=== PATIENT | female | born 1990 | race American Indian/Alaskan Native ===

== ENCOUNTER 2018-09-10 19:57 | Inpatient (IN) | payer OTHER ==
[2018-09-10] MEDS ORDERED: NACL 0.9% 1000 ML 1,000 ML IV ONE (20:43)
--- NOTE | 2018-09-10 20:49 | Emergency Department Report ---
<ROSARIO FERRIS - Last Filed: 09/11/18 08:00> ED Syncope HPI - General Chief Complaint: Dizziness Stated Complaint: POST OPERATIVE BLEEDING Time Seen by Provider: 09/10/18 20:43 - Related Data Allergies/Adverse Reactions: Allergies No Known Allergies Allergy (Verified 09/10/18 20:13) Home Medications: Ambulatory Orders No Known Home Medications [No Reported Home Medications] 09/11/18 ED Past Medical Hx - Medications Home Medications: Home Medications Medication Instructions Recorded Confirmed Last Taken Type No Known Home Medications [No 09/11/18 09/11/18 Unknown History Reported Home Medications] ED Course - Consultations Consultation #3: 09/11/18 08:02 case d/w Dr Bernal, informed pt admission to icu. MAP greater than 65 at this time so central line not placed a this time. He will follow ED Medical Decision Making - Lab Data Result diagrams: 09/10/18 22:44 09/10/18 22:44 ED Disposition Clinical Impression: Dizziness, Lactic acidosis, Hyperkalemia, Elevated CK Syncope Qualifiers: Syncope type: unspecified Qualified Code(s): R55 - Syncope and collapse Anemia Qualifiers: Anemia type: unspecified type Qualified Code(s): D64.9 - Anemia, unspecified Sepsis Qualifiers: Sepsis type: sepsis due to unspecified organism Qualified Code(s): A41.9 - Sepsis, unspecified organism Rhabdomyolysis Qualifiers: Rhabdomyolysis type: non-traumatic Qualified Code(s): M62.82 - Rhabdomyolysis Post-op bleeding Qualifiers: Surgical complication system/body Area: skin Procedure type: non-dermatologic Qualified Code(s): L76.22 - Postprocedural hemorrhage of skin and subcutaneous tissue following other procedure Post-operative complication Qualifiers: Surgical complication system/body Area: [id number] Surgical complication type: shock Encounter type: initial encounter Postoperative shock type: septic Qualified Code(s): T81.12XA - Postprocedural septic shock, initial encounter Disposition: OP ADMIT IP TO THIS HOSP Condition: Critical <LAUREN CÁRDENAS III - Last Filed: 09/11/18 20:53> ED Syncope HPI - General Source: patient, EMS Exam Limitations: no limitations - History of Present Illness Initial Comments: Patient is a 28-year-old female that presents emergency room with complaints of syncopal episode and postoperative bleeding. Patient is also complaining of lightheadedness and weakness and fatigue. Patient states she had a cosmetic surgery a with liposuction from her back and a fat transfer to her buttocks. Patient states she had a normal hemoglobin prior to the surgery and has been ble eding profusely from her surgical sites. Patient states she had a witnessed single episode of a brief amount of time. Patient denies chest pain shortness of breath. Timing/Prior Episodes: no prior history, single episode today Precipitating Factors: Positive: blurred vision, lightheadedness, rapid heart beat Context: standing Loss of Consciousness: brief (seconds) Current Symptoms: blurred vision, dizziness, lightheadedness, pale, weakness. denies: chest pain, diaphoresis, headache, injury ED Review of Systems ROS: Stated complaint: POST OPERATIVE BLEEDING Other details as noted in HPI Constitutional: weakness. denies: chills, fever Eyes: denies: eye pain, eye discharge, vision change ENT: denies: ear pain, throat pain Respiratory: denies: cough, shortness of breath, wheezing Cardiovascular: denies: chest pain, palpitations Endocrine: no symptoms reported Gastrointestinal: denies: abdominal pain, nausea, diarrhea Genitourinary: denies: urgency, dysuria, discharge Musculoskeletal: denies: back pain, joint swelling, arthralgia Skin: denies: rash, lesions Neurological: weakness. denies: headache, paresthesias Psychiatric: denies: anxiety, depression Hematological/Lymphatic: denies: easy bleeding, easy bruising ED Past Medical Hx - Past Medical History Previous Medical History?: Yes Additional medical history: anemia , chrons - Surgical History Past Surgical History?: Yes Additional Surgical History: fat transfer from back to buttocks - Family History Family history: no significant - Social History Smoking Status: Never Smoker Substance Use Type: None ED Physical Exam - General Limitations: No Limitations General appearance: alert, in no apparent distress, lethargic - Head Head exam: Present: atraumatic, normocephalic - Eye Eye exam: Present: normal appearance, PERRL, EOMI, other (scleral pallor noted) Pupils: Present: normal accommodation - ENT ENT exam: Present: mucous membranes moist - Neck Neck exam: Present: normal inspection - Respiratory Respiratory exam: Present: normal lung sounds bilaterally. Absent: respiratory distress - Cardiovascular Cardiovascular Exam: Present: regular rate, normal rhythm. Absent: systolic murmur, diastolic murmur, rubs, gallop - GI/Abdominal GI/Abdominal exam: Present: soft, normal bowel sounds - Extremities Exam Extremities exam: Present: normal inspection - Back Exam Back exam: Present: normal inspection - Neurological Exam Neurological exam: Present: alert, oriented X3 - Psychiatric Psychiatric exam: Present: normal affect, normal mood - Skin Skin exam: Present: warm, dry, normal color, other (surgical dressing and diaper is saturated with blood. No redness at surgical site. ). Absent: rash ED Course Vital Signs 09/10/18 09/10/18 09/10/18 20:14 20:27 23:27 Temperature 95.9 F L Pulse Rate 117 H 101 H Respiratory 16 16 Rate Blood Pressure 105/69 Blood Pressure 136/83 [Left] O2 Sat by Pulse 100 100 Oximetry 09/10/18 09/10/18 09/11/18 23:30 23:46 00:00 Temperature Pulse Rate Respiratory Rate Blood Pressure Blood Pressure [Left] O2 Sat by Pulse 100 100 100 Oximetry 09/11/18 09/11/18 09/11/18 00:16 00:30 00:46 Temperature Pulse Rate 100 H Respiratory 12 12 Rate Blood Pressure 113/70 113/70 Blood Pressure [Left] O2 Sat by Pulse 100 100 100 Oximetry 09/11/18 09/11/18 09/11/18 01:16 01:30 02:00 Temperature Pulse Rate 110 H Respiratory 10 L 12 12 Rate Blood Pressure 113/70 129/89 132/80 Blood Pressure [Left] O2 Sat by Pulse 100 100 100 Oximetry 09/11/18 09/11/18 09/11/18 02:30 03:34 03:46 Temperature Pulse Rate 103 H 115 H 98 H Respiratory 15 13 12 Rate Blood Pressure 136/78 127/73 136/78 Blood Pressure [Left] O2 Sat by Pulse 99 99 100 Oximetry 09/11/18 09/11/18 09/11/18 04:00 04:16 04:30 Temperature Pulse Rate 100 H 109 H 103 H Respiratory 12 15 16 Rate Blood Pressure 121/79 121/79 121/75 Blood Pressure [Left] O2 Sat by Pulse 100 98 100 Oximetry 09/11/18 09/11/18 09/11/18 05:00 06:00 06:11 Temperature Pulse Rate 100 H 100 H Respiratory 14 18 Rate Blood Pressure 106/59 109/70 Blood Pressure [Left] O2 Sat by Pulse 99 98 Oximetry 09/11/18 09/11/18 09/11/18 06:16 06:46 08:00 Temperature Pulse Rate Respiratory Rate Blood Pressure 109/70 100/64 100/64 Blood Pressure [Left] O2 Sat by Pulse 99 99 100 Oximetry 09/11/18 09/11/18 09/11/18 08:12 08:16 08:46 Temperature Pulse Rate 112 H Respiratory 20 Rate Blood Pressure 115/57 113/59 Blood Pressure 115/57 [Left] O2 Sat by Pulse 98 100 99 Oximetry 09/11/18 09/11/18 09/11/18 09:16 09:46 09:49 Temperature 98.6 F Pulse Rate 115 H Respiratory 19 Rate Blood Pressure 113/59 113/56 Blood Pressure 113/56 [Left] O2 Sat by Pulse 98 99 99 Oximetry 09/11/18 09/11/18 09/11/18 11:00 11:46 12:00 Temperature Pulse Rate Respiratory Rate Blood Pressure 114/54 109/52 106/52 Blood Pressure [Left] O2 Sat by Pulse 99 99 99 Oximetry 09/11/18 09/11/18 09/11/18 12:16 14:24 14:30 Temperature 98.6 F Pulse Rate 116 H Respiratory 21 Rate Blood Pressure 109/52 98/59 Blood Pressure 113/56 [Left] O2 Sat by Pulse 100 99 99 Oximetry 09/11/18 17:09 Temperature Pulse Rate 115 H Respiratory 21 Rate Blood Pressure Blood Pressure 130/55 [Left] O2 Sat by Pulse 100 Oximetry - Reevaluation(s) Reevaluation #1: I attempted to contact the patient's surgeon. Unable to contact surgeon and no on-call number available. The surgeon's name is Dr.Clifton Samuel. 09/11/18 00:01 Patient is complaining of pain in the buttock and the surgical area. Patient given Dilaudid. 09/11/18 01:19 Patient states she is feeling better. Patient states her weakness is improving. Patient is less lethargic at this time. 09/11/18 03:16 Patient is resting. Patient's lethargy is improving. Discussed all results with patient. Discussed plan of care with patient. Patient agrees with plan of care and admission. Patient to be admitted to the hospitalist service. 09/11/18 06:31 - Consultations Consultation #1: Dr. Santo consult at for surgical care since the patient is a postop patient and I cannot get in contact with the responsible surgeon. 09/11/18 00:31 Consultation #2: Hospital's consult for admission. Hospitalist want CTA done and vanc. Bridge orders placed. Hospitalist accepted patient 09/11/18 06:42 ED Medical Decision Making - Lab Data Result diagrams: 09/10/18 22:44 09/11/18 09:09 - EKG Data -: EKG Interpreted by Me EKG shows normal: sinus rhythm, axis, intervals, QRS complexes, ST-T waves Rate: tachycardia - Radiology Data Radiology results: report reviewed, image reviewed FINAL REPORT EXAM: XR CHEST 1V AP HISTORY: dizzy TECHNIQUE: AP portable view of the chest. PRIORS: None. FINDINGS: The cardiomediastinal silhouette appears normal. The lungs are clear. The bones and soft tissues are unremarkable. IMPRESSION: No evidence of acute cardiopulmonary disease. FINAL REPORT PROCEDURE: CT ABDOMEN PELVIS WO CON TECHNIQUE: Computerized axial tomography of the abdomen and pelvis was perfo rmed without intravenous contrast. This study is performed without intravascular contrast material and its sensitivity for abdominal and pelvic pathology, including neoplasms, inflammation, abscess, free fluid, thrombosis, arterial dissection and infarction, is reduced compared with a contrast enhanced study. HISTORY: pain liposuction of back and buttocks 119 pain in back and buttoc ks COMPARISON: No prior studies are available for comparison. FINDINGS: Visualized lower thorax: No significant abnormality. Liver: Normal size and attenuation. Spleen: Normal size and attenuation. Gallbladder and biliary system: Normal. Pancreas: Normal. Adrenals: Normal. Kidneys: Normal. GI tract: Normal. Lymph nodes and mesentery: Normal. Vasculature: Normal. Bladder: Normal. Reproductive organs: Normal. Peritoneum: No free fluid. Musculoskeletal structures: No significant abnormality. Other: There is subcutaneous air in the back consistent with a recent liposuction. There is no hematoma or abscess. There is a drainage catheter in the subcutaneous fat of the lower midline of the back.. IMPRESSION: There is no intra-abdominal abnormality. There is no subcutaneous hematoma or abscess. There is diffuse posterior subcutaneous emphysema most likely related to recent liposuction procedure.. - Medical Decision Making Patient is a 28-year-old female is emergency room with syncopal episode 1. Demetrio porter also complains of weakness, fatigue and profuse bleeding from her surgical site. Patient is status post liposuction and fat transfer to her buttocks. Patient has multiple significant lab findings. Patient is septic left acidosis. Patient has elevated WBCs at 30. - Differential Diagnosis anemia. Surgical hemorrhage. Sepsis. Critical Care Time: Yes Critical care attestation.: If time is entered above; I have spent that time in minutes in the direct care of this critically ill patient, excluding procedure time. Critical Care Time: 80 minutes ED Disposition Is pt being admited?: Yes Does the pt Need Aspirin: No Time of Disposition: 06:42
[2018-09-10 23:15] LABS: Hematocrit 31.4 % (30.3-42.9); Hemoglobin 10.1 gm/dl (10.1-14.3); Mean Corpuscular HGB Conc 32 % (30-34); Mean Corpuscular Volume 92 fl (79-97); Platelet Count 530 K/mm3 (140-440); Red Blood Count 3.43 M/mm3 (3.65-5.03); Red Cell Distribution Width 14.4 % (13.2-15.2)
[2018-09-10 23:31] LABS: Creatine Kinase MB 3.1 ng/mL (0.0-4.0)
[2018-09-10 23:36] LABS: Alanine Aminotransferase 13 units/L (7-56); Albumin 3.9 g/dL (3.9-5); BUN/Creatinine Ratio 17; Blood Urea Nitrogen 12 mg/dL (7-17); Hemolysis Index 3
[2018-09-11] MEDS ORDERED: NACL 0.9% 1000 ML 1,000 ML IV ONE ×3 (00:05→03:16)
[2018-09-11] MEDS ORDERED: CALCIUM CHLORIDE IV ONE (00:07)
[2018-09-11] MEDS ORDERED: HumuLIN R IV ONE (00:07)
[2018-09-11] MEDS ORDERED: D50W (25GM) Syringe IV ONE ×2 (01:00→02:02)
[2018-09-11 01:11] LABS: Amorphous Crystals,Urine 1+; Bilirubin,Urine NEG (Negative); Blood,Urine NEG (Negative); Color,Urine Yellow (Yellow); Hyaline Casts,Urine 46 /LPF; Mucus,Urine 2+ /HPF; Protein,Urine <15 mg/dL mg/dL (Negative); RBC,Urine < 1.0 /HPF (0.0-6.0); Urobilinogen,Urine < 2.0 mg/dL (<2.0); WBC,Urine < 1.0 /HPF (0.0-6.0)
[2018-09-11] MEDS ORDERED: DILAUDID IM ONE (01:14)
[2018-09-11 01:43] LABS: Anisocytosis 1+; Band Neutrophils # (Manual) 8.9 K/mm3; Basophils % (Manual) 0 % (0.0-1.8); Eosinophils % (Manual) 0 % (0.0-4.3); Total Cells Counted 100
[2018-09-11 01:44] LABS: Platelet Estimate Appears Increased
[2018-09-11] MEDS ORDERED: ZOSYN/NS 4.5GM/100ML 4.5 GM/100 ML VIAL IV ONE (01:44)
--- NOTE | 2018-09-11 01:50 | XRay Report ---
FINAL REPORT EXAM: XR CHEST 1V AP HISTORY: dizzy TECHNIQUE: AP portable view of the chest. PRIORS: None. FINDINGS: The cardiomediastinal silhouette appears normal. The lungs are clear. The bones and soft tissues are unremarkable. IMPRESSION: No evidence of acute cardiopulmonary disease.
[2018-09-11 03:35] LABS: Bacteria,Urine 1+ /HPF (Negative)
[2018-09-11 03:43] LABS: Bilirubin,Urine Negative (Negative); Blood,Urine Negative (Negative); Color,Urine Yellow (Yellow)
[2018-09-11 03:44] LABS: Amorphous Crystals,Urine 1+; Protein,Urine <15 mg/dL mg/dL (Negative); Urobilinogen,Urine < 2.0 mg/dL (<2.0)
[2018-09-11 03:45] LABS: Bacteria,Urine 1+ /HPF (Negative); Hyaline Casts,Urine 46 /LPF; Mucus,Urine 2+ /HPF
--- NOTE | 2018-09-11 03:56 | Cat Scan Report ---
FINAL REPORT PROCEDURE: CT HEAD/BRAIN WO CON TECHNIQUE: Computerized tomography of the head was performed without contrast material. HISTORY: syncope COMPARISON: No prior studies are available for comparison. FINDINGS: Skull and scalp: Normal. Paranasal sinuses: Normal. Ventricles and subarachnoid spaces: Normal. Cerebrum: No evidence of hemorrhage, acute infarction or mass . Cerebellum and brainstem: No evidence of hemorrhage, acute infarction or mass. Vasculature: Normal. Comments: None. IMPRESSION: Normal Examination
--- NOTE | 2018-09-11 06:31 | Cat Scan Report ---
FINAL REPORT PROCEDURE: CT ABDOMEN PELVIS WO CON TECHNIQUE: Computerized axial tomography of the abdomen and pelvis was performed without intravenous contrast. This study is performed without intravascular contrast material and its sensitivity for ab dominal and pelvic pathology, including neoplasms, inflammation, abscess, free fluid, thrombosis, art erial dissection and infarction, is reduced compared with a contrast enhanced study. HISTORY: pain liposuction of back and buttocks 1--19 pain in back and buttocks COMPARISON: No prior studies are available for comparison. FINDINGS: Visualized lower thorax: No significant abnormality. Liver: Normal size and attenuation. Spleen: Normal size and attenuation. Gallbladder and biliary system: Normal. Pancreas: Normal. Adrenals: Normal. Kidneys: Normal. GI tract: Normal. Lymph nodes and mesentery: Normal. Vasculature: Normal. Bladder: Normal. Reproductive organs: Normal. Peritoneum: No free fluid. Musculoskeletal structures: No significant abnormality. Other: There is subcutaneous air in the back consistent with a recent liposuction. There is no hemato ma or abscess. There is a drainage catheter in the subcutaneous fat of the lower midline of the back. . IMPRESSION: There is no intra-abdominal abnormality. There is no subcutaneous hematoma or abscess. There is diffu se posterior subcutaneous emphysema most likely related to recent liposuction procedure..
[2018-09-11] MEDS ORDERED: VANCOMYCIN/NS 1 GM/250 ML 1 GM/250 ML BAG IV ONE (07:00)
[2018-09-11] MEDS ORDERED: ZOFRAN IV PRN (07:27)
[2018-09-11] MEDS ORDERED: PERCOCET 5/325 PO PRN (07:27)
[2018-09-11] MEDS ORDERED: MORPHINE IV PRN (07:27)
[2018-09-11] MEDS ORDERED: SODIUM CHLORIDE FLUSH SYRINGE 10 ML IV PRN (07:27)
[2018-09-11] MEDS ORDERED: DILAUDID IV ONE ×3 (08:21→21:03)
[2018-09-11] MEDS ORDERED: ZOFRAN IV ONE (08:21)
[2018-09-11] MEDS ORDERED: DILAUDID ONE ×2 (08:36→21:08)
[2018-09-11] MEDS ORDERED: ZOFRAN ONE (08:51)
[2018-09-11 09:41] LABS: BUN/Creatinine Ratio 16; Blood Urea Nitrogen 11 mg/dL (7-17); Calcium 9.1 mg/dL (8.4-10.2); Hemolysis Index 7
--- NOTE | 2018-09-11 10:10 | History and Physical Report ---
History of Present Illness Date of admission: 09/11/18 06:39 Chief complaint: Weakness History of present illness: 28-year-old woman who presented after she had plastic surgery. She saw Dr. Jayden umanzor. Who performed liposuction and injection of fact transferred into her buttocks. She stated that she was bleeding from her surgical sites. Her family took her into the car and drove her home but she was too weak to get out of the car. The family witnessed a syncopal episode after which they prefer to the hospital. Per the patient was very drowsy and she has no real recollection of what happened. I asked her for full number to reach her surgeon, she does not have one. 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 Medications and Allergies Allergies Allergy/AdvReac Type Severity Reaction Status Date / Time No Known Allergies Allergy Verified 09/10/18 20:13 Home Medications Medication Instructions Recorded Confirmed Last Taken Type No Known Home Medications [No 09/11/18 09/11/18 Unknown History Reported Home Medications] Active Meds: Active Medications Acetaminophen (Tylenol) 650 mg PO Q4H PRN PRN Reason: Pain MILD(1-3)/Fever >100.5/MILLER Ampicillin Sodium/Sulbactam Sodium (Unasyn/Ns 3 Gm/100 Ml) 3 gm in 100 mls @ 200 mls/hr IV Q6HR FIDELINA; Protocol Sodium Chloride (Nacl 0.9% 1000 Ml) 1,000 mls @ 125 mls/hr IV DIRECT FIDELINA Morphine Sulfate (Morphine) 2 mg IV Q4H PRN PRN Reason: Pain, Moderate (4-6) Ondansetron HCl (Zofran) 4 mg IV Q8H PRN PRN Reason: Nausea And Vomiting Oxycodone/Acetaminophen (Percocet 5/325) 1 tab PO Q6H PRN PRN Reason: Pain, Moderate (4-6) Sodium Chloride (Sodium Chloride Flush Syringe 10 Ml) 10 ml IV BID FIDELINA Sodium Chloride (Sodium Chloride Flush Syringe 10 Ml) 10 ml IV PRN PRN PRN Reason: LINE FLUSH Review of Systems Constitutional: fatigue, weakness, malaise Ears, nose, mouth and throat: no ear pain Breasts: no deferred Cardiovascular: no chest pain Respiratory: no cough Gastrointestinal: no abdominal pain Genitourinary Female: no dyspareunia Musculoskeletal: no neck stiffness Integumentary: no rash Neurological: no head injury Psychiatric: no anxiety Endocrine: no cold intolerance Hematologic/Lymphatic: no easy bruising Allergic/Immunologic: no urticaria Exam - Constitutional Vitals: Temp Pulse Resp BP Pulse Ox 98.6 F 115 H 19 113/56 99 09/11/18 09:49 09/11/18 09:49 09/11/18 09:49 09/11/18 09:49 09/11/18 09:49 General appearance: Present: no acute distress, well-nourished - EENT Eyes: Present: PERRL ENT: hearing intact, clear oral mucosa - Neck Neck: Present: supple, normal ROM - Respiratory Respiratory effort: normal Respiratory: bilateral: CTA - Cardiovascular Heart Sounds: Present: S1 & S2. Absent: rub, click - Extremities Extremities: pulses symmetrical, No edema Peripheral Pulses: within normal limits - Abdominal General gastrointestinal: Present: soft, non-tender, non-distended, normal bowel sounds Female genitourinary: Present: normal - Integumentary Integumentary: Present: clear, warm (the patient has induration around her buttocks, erythema, tenderness, no obvious signs of infection. There is bruising which is consistent with liposuction of fat transfer), dry - Musculoskeletal Musculoskeletal: gait normal, strength equal bilaterally - Psychiatric Psychiatric: appropriate mood/affect, intact judgment & insight - Neurologic Neurologic: CNII-XII intact, moves all extremities Results - Labs CBC & Chem 7: 09/12/18 10:44 09/12/18 10:44 Labs: Laboratory Last Values WBC 30.7 K/mm3 (4.5-11.0) H 09/10/18 22:44 RBC 3.43 M/mm3 (3.65-5.03) L 09/10/18 22:44 Hgb 10.1 gm/dl (10.1-14.3) 09/10/18 22:44 Hct 31.4 % (30.3-42.9) 09/10/18 22:44 MCV 92 fl (79-97) 09/10/18 22:44 MCH 29 pg (28-32) 09/10/18 22:44 MCHC 32 % (30-34) 09/10/18 22:44 RDW 14.4 % (13.2-15.2) 09/10/18 22:44 Plt Count 530 K/mm3 (140-440) H 09/10/18 22:44 Add Manual Diff Complete 09/10/18 22:44 Total Counted 100 09/10/18 22:44 Seg Neuts % (Manual) 61.0 % (40.0-70.0) 09/10/18 22:44 Band Neutrophils % 29.0 % 09/10/18 22:44 Lymphocytes % (Manual) 5.0 % (13.4-35.0) L 09/10/18 22:44 Reactive Lymphs % (Man) 0 % 09/10/18 22:44 Monocytes % (Manual) 5.0 % (0.0-7.3) 09/10/18 22:44 Eosinophils % (Manual) 0 % (0.0-4.3) 09/10/18 22:44 Basophils % (Manual) 0 % (0.0-1.8) 09/10/18 22:44 Metamyelocytes % 0 % 09/10/18 22:44 Myelocytes % 0 % 09/10/18 22:44 Promyelocytes % 0 % 09/10/18 22:44 Blast Cells % 0 % 09/10/18 22:44 Nucleated RBC % Not Reportable 09/10/18 22:44 Seg Neutrophils # Man 18.7 K/mm3 (1.8-7.7) H 09/10/18 22:44 Band Neutrophils # 8.9 K/mm3 09/10/18 22:44 Lymphocytes # (Manual) 1.5 K/mm3 (1.2-5.4) 09/10/18 22:44 Abs React Lymphs (Man) 0.0 K/mm3 09/10/18 22:44 Monocytes # (Manual) 1.5 K/mm3 (0.0-0.8) H 09/10/18 22:44 Eosinophils # (Manual) 0.0 K/mm3 (0.0-0.4) 09/10/18 22:44 Basophils # (Manual) 0.0 K/mm3 (0.0-0.1) 09/10/18 22:44 Metamyelocytes # 0.0 K/mm3 09/10/18 22:44 Myelocytes # 0.0 K/mm3 09/10/18 22:44 Promyelocytes # 0.0 K/mm3 09/10/18 22:44 Blast Cells # 0.0 K/mm3 09/10/18 22:44 WBC Morphology Not Reportable 09/10/18 22:44 Hypersegmented Neuts Not Reportable 09/10/18 22:44 Hyposegmented Neuts Not Reportable 09/10/18 22:44 Hypogranular Neuts Not Reportable 09/10/18 22:44 Smudge Cells Not Reportable 09/10/18 22:44 Toxic Granulation Not Reportable 09/10/18 22:44 Toxic Vacuolation Not Reportable 09/10/18 22:44 Dohle Bodies Not Reportable 09/10/18 22:44 Pelger-Huet Anomaly Not Reportable 09/10/18 22:44 Nasir Rods Not Reportable 09/10/18 22:44 Platelet Estimate Appears increased 09/10/18 22:44 Clumped Platelets Not Reportable 09/10/18 22:44 Plt Clumps, EDTA Not Reportable 09/10/18 22:44 Large Platelets Not Reportable 09/10/18 22:44 Giant Platelets Not Reportable 09/10/18 22:44 Platelet Satelliting Not Reportable 09/10/18 22:44 Plt Morphology Comment Not Reportable 09/10/18 22:44 RBC Morphology Not Reportable 09/10/18 22:44 Dimorphic RBCs Not Reportable 09/10/18 22:44 Polychromasia Not Reportable 09/10/18 22:44 Hypochromasia Not Reportable 09/10/18 22:44 Poikilocytosis Not Reportable 09/10/18 22:44 Anisocytosis 1+ 09/10/18 22:44 Microcytosis Not Reportable 09/10/18 22:44 Macrocytosis Not Reportable 09/10/18 22:44 Spherocytes Not Reportable 09/10/18 22:44 Pappenheimer Bodies Not Reportable 09/10/18 22:44 Sickle Cells Not Reportable 09/10/18 22:44 Target Cells Not Reportable 09/10/18 22:44 Tear Drop Cells Not Reportable 09/10/18 22:44 Ovalocytes Not Reportable 09/10/18 22:44 Helmet Cells Not Reportable 09/10/18 22:44 Bailey-Lowden Bodies Not Reportable 09/10/18 22:44 Plummer Rings Not Reportable 09/10/18 22:44 [place] Cells Not Reportable 09/10/18 22:44 Bite Cells Not Reportable 09/10/18 22:44 Crenated Cell Not Reportable 09/10/18 22:44 Elliptocytes Not Reportable 09/10/18 22:44 Acanthocytes (Spur) Not Reportable 09/10/18 22:44 Rouleaux Not Reportable 09/10/18 22:44 Hemoglobin C Crystals Not Reportable 09/10/18 22:44 Schistocytes Not Reportable 09/10/18 22:44 Malaria parasites Not Reportable 09/10/18 22:44 Will Bodies Not Reportable 09/10/18 22:44 Hem Pathologist Commnt No 09/10/18 22:44 Sodium 136 mmol/L (137-145) L 09/11/18 09:09 Potassium 5.5 mmol/L (3.6-5.0) H 09/11/18 09:09 Chloride 102.2 mmol/L (98-107) 09/11/18 09:09 Carbon Dioxide 23 mmol/L (22-30) 09/11/18 09:09 Anion Gap 16 mmol/L 09/11/18 09:09 BUN 11 mg/dL (7-17) 09/11/18 09:09 Creatinine 0.7 mg/dL (0.7-1.2) 09/11/18 09:09 Estimated GFR > 60 ml/min 09/11/18 09:09 BUN/Creatinine Ratio 16 % 09/11/18 09:09 Glucose 106 mg/dL (65-100) H 09/11/18 09:09 Lactic Acid 1.80 mmol/L (0.7-2.0) 09/11/18 04:47 Calcium 9.1 mg/dL (8.4-10.2) 09/11/18 09:09 Total Bilirubin 0.50 mg/dL (0.1-1.2) 09/10/18 22:44 AST 23 units/L (5-40) 09/10/18 22:44 ALT 13 units/L (7-56) 09/10/18 22:44 Alkaline Phosphatase 81 units/L (35-129) 09/10/18 22:44 Total Creatine Kinase 1367 units/L (30-135) H 09/11/18 03:25 CK-MB (CK-2) 3.1 ng/mL (0.0-4.0) 09/10/18 22:44 CK-MB (CK-2) Rel Index 0.2 (0-4) 09/10/18 22:44 Troponin T < 0.010 ng/mL (0.00-0.029) 09/10/18 22:44 Total Protein 7.6 g/dL (6.3-8.2) 09/10/18 22:44 Albumin 3.9 g/dL (3.9-5) 09/10/18 22:44 Albumin/Globulin Ratio 1.1 % 09/10/18 22:44 HCG, Qual Negative (Negative) 09/11/18 00:10 Urine Color Yellow (Yellow) 09/11/18 01:30 Urine Turbidity Clear (Clear) 09/11/18 01:30 Urine pH 5.0 (5.0-7.0) 09/11/18 01:30 Ur Specific Tangent 1.016 (1.003-1.030) 09/11/18 01:30 Urine Protein <15 mg/dl mg/dL (Negative) 09/11/18 01:30 Urine Glucose (UA) Negative mg/dL (Negative) 09/11/18 01:30 Urine Ketones Trace mg/dL (Negative) 09/11/18 01:30 Urine Blood Negative (Negative) 09/11/18 01:30 Urine Nitrite Negative (Negative) 09/11/18 01:30 Urine Bilirubin Negative (Negative) 09/11/18 01:30 Urine Urobilinogen < 2.0 mg/dL (<2.0) 09/11/18 01:30 Ur Leukocyte Esterase Negative (Negative) 09/11/18 01:30 Urine WBC (Auto) 1.0 /HPF (0.0-6.0) 09/11/18 01:30 Urine RBC (Auto) 1.0 /HPF (0.0-6.0) 09/11/18 01:30 U Epithel Cells (Auto) 1.0 /HPF (0-13.0) 09/11/18 01:30 Urine Bacteria (Auto) 1+ /HPF (Negative) 09/11/18 01:30 Amorphous Crystals 1+ 09/11/18 01:30 Hyaline Casts 46 /LPF 09/11/18 01:30 Urine Mucus 2+ /HPF 09/11/18 01:30 Blood Type A POSITIVE 09/10/18 22:44 Antibody Screen Negative 09/10/18 22:44 Assessment and Plan Assessment and plan: 28-year-old woman who presents after a light suction and fat transfer to the buttocks with weakness bleeding from surgical sites and malaise. Problems Rhabdomyolysis Hyperkalemia Dehydration Acute blood loss anemia Plan attempted to reach her surgeon Dr Samuel, unable to reach him.- Left a message -Do not have any plastic surgeon on site, who would be familiar with expected recovery and outcomes -Continue IV fluids, treat hyperkalemia medically -Empiric Antibiotics, at this point I am not convinced that there is an infection monitor CBC, transfuse as needed -Obtain CT angiogram of her chest, she is at high risk for embolism DVT prophylaxis with SCDs, given acute blood loss
[2018-09-11] MEDS: SODIUM CHLORIDE FLUSH SYRINGE 10 ML IV SCH (10:30)
--- NOTE | 2018-09-11 10:30 | Cat Scan Report ---
CTA of the chest: Syncope, postoperative liposuction. Following IV administration of contrast transverse images were obtained through the chest using pulmonary embolus protocol. Coronal and sagittal 2-D reformatted images are occluded as well as 3-D MIP images. There is a 2.8 cm hypodense nodule extending inferiorly from the left thyroid gland. There is no significant hilar or mediastinal adenopathy. The central airways are patent. The pulmonary arteries, veins, and cardiac chambers are well opacified as is the thoracic aorta. No pulmonary filling abnormalities are identified and no filling defects identified in the cardiac chambers. No cardiac enlargement appreciated. Minimal patchy appearing pulmonary atelectasis noted in the right apex. On images [id number] of series 2 there is peripheral nodular atelectasis in the right lower lobe. There is soft tissue gas in the chest wall posteriorly consistent with liposuction procedure. Impression: 1. Left thyroid mass. 2. No evidence of pulmonary embolus. 3. Right upper and lower lobe areas of pulmonary atelectasis.
[2018-09-11] MEDS: UNASYN/NS 3 GM/100 ML 3 GM/100 ML BAG IV SCH (12:09)
--- NOTE | 2018-09-11 13:41 | Progress Note ---
Assessment and Plan Full consult dictated 28 y/o female s/p liposuction & gluteal injections yest am. subsequent felt dizzy and fell. bleeding PE - gluteal echymosis and induration but no active bleeding 30 wbc h/h 07/01 surgically stable r/o gluteal hematoma infection? will need to contact operating physician for transfer or take-over of care I do not perform plastic surgery and thus am not familiar with this procedure or normal progression of recovery will need plastic surg eval if pt going to be admitted to our institution Selected Entries 09/11/18 09:49 Temperature 98.6 F Pulse Rate 115 H Respiratory 19 Rate Blood Pressure 113/56 [Left] Laboratory Tests 09/10/18 09/10/18 09/11/18 22:44 22:44 09:09 WBC 30.7 H Hgb 10.1 Hct 31.4 Sodium 136 L Potassium 5.5 H Chloride 102.2 BUN 11 Creatinine 0.7 Lactic Acid 4.30 H* Objective Vital Signs - 12hr 09/11/18 09/11/18 09/11/18 02:00 02:30 03:34 Temperature Pulse Rate 110 H 103 H 115 H Respiratory 12 15 13 Rate Blood Pressure 132/80 136/78 127/73 Blood Pressure [Left] O2 Sat by Pulse 100 99 99 Oximetry 09/11/18 09/11/18 09/11/18 03:46 04:00 04:16 Temperature Pulse Rate 98 H 100 H 109 H Respiratory 12 12 15 Rate Blood Pressure 136/78 121/79 121/79 Blood Pressure [Left] O2 Sat by Pulse 100 100 98 Oximetry 09/11/18 09/11/18 09/11/18 04:30 05:00 06:00 Temperature Pulse Rate 103 H 100 H Respiratory 16 14 Rate Blood Pressure 121/75 106/59 109/70 Blood Pressure [Left] O2 Sat by Pulse 100 99 98 Oximetry 09/11/18 09/11/18 09/11/18 06:11 08:12 09:49 Temperature 98.6 F Pulse Rate 100 H 112 H 115 H Respiratory 18 20 19 Rate Blood Pressure Blood Pressure 115/57 113/56 [Left] O2 Sat by Pulse 98 99 Oximetry - Labs 09/10/18 22:44 09/11/18 09:09 Diabetes panel 09/10/18 09/11/18 Range/Units 22:44 09:09 Sodium 135 L 136 L (137-145) mmol/L Potassium 6.2 H* 5.5 H (3.6-5.0) mmol/L Chloride 99.4 102.2 (98-107) mmol/L Carbon Dioxide 22 23 (22-30) mmol/L BUN 12 11 (7-17) mg/dL Creatinine 0.7 0.7 (0.7-1.2) mg/dL Glucose 139 H 106 H (65-100) mg/dL Calcium 9.0 9.1 (8.4-10.2) mg/dL AST 23 (5-40) units/L ALT 13 (7-56) units/L Alkaline Phosphatase 81 (35-129) units/L Total Protein 7.6 (6.3-8.2) g/dL Albumin 3.9 (3.9-5) g/dL Calcium panel 09/10/18 09/11/18 Range/Units 22:44 09:09 Calcium 9.0 9.1 (8.4-10.2) mg/dL Albumin 3.9 (3.9-5) g/dL Pituitary panel 09/10/18 09/11/18 Range/Units 22:44 09:09 Sodium 135 L 136 L (137-145) mmol/L Potassium 6.2 H* 5.5 H (3.6-5.0) mmol/L Chloride 99.4 102.2 (98-107) mmol/L Carbon Dioxide 22 23 (22-30) mmol/L BUN 12 11 (7-17) mg/dL Creatinine 0.7 0.7 (0.7-1.2) mg/dL Glucose 139 H 106 H (65-100) mg/dL Calcium 9.0 9.1 (8.4-10.2) mg/dL Adrenal panel 09/10/18 09/11/18 Range/Units 22:44 09:09 Sodium 135 L 136 L (137-145) mmol/L Potassium 6.2 H* 5.5 H (3.6-5.0) mmol/L Chloride 99.4 102.2 (98-107) mmol/L Carbon Dioxide 22 23 (22-30) mmol/L BUN 12 11 (7-17) mg/dL Creatinine 0.7 0.7 (0.7-1.2) mg/dL Glucose 139 H 106 H (65-100) mg/dL Calcium 9.0 9.1 (8.4-10.2) mg/dL Total Bilirubin 0.50 (0.1-1.2) mg/dL AST 23 (5-40) units/L ALT 13 (7-56) units/L Alkaline Phosphatase 81 (35-129) units/L Total Protein 7.6 (6.3-8.2) g/dL Albumin 3.9 (3.9-5) g/dL
--- NOTE | 2018-09-11 14:45 | Consultation ---
History of Present Illness Consult date: 09/11/18 Requesting physician: LAUREN CÁRDENAS III Reason for consult: other (Severe Sepsis with Shock) History of present illness: PULMONARY/CCM CONSULT NOTE (Full dictation # [id number]) Please see dictated notes for full details Medications and Allergies Allergies Allergy/AdvReac Type Severity Reaction Status Date / Time No Known Allergies Allergy Verified 09/10/18 20:13 Home Medications Medication Instructions Recorded Confirmed Last Taken Type No Known Home Medications [No 09/11/18 09/11/18 Unknown History Reported Home Medications] Active Meds: Active Medications Acetaminophen (Tylenol) 650 mg PO Q4H PRN PRN Reason: Pain MILD(1-3)/Fever >100.5/MILLER Ampicillin Sodium/Sulbactam Sodium (Unasyn/Ns 3 Gm/100 Ml) 3 gm in 100 mls @ 200 mls/hr IV Q6HR FIDELINA; Protocol Last Admin: 09/11/18 12:09 Dose: 200 mls/hr Documented by: Sodium Chloride (Nacl 0.9% 1000 Ml) 1,000 mls @ 125 mls/hr IV DIRECT FIDELINA Morphine Sulfate (Morphine) 2 mg IV Q4H PRN PRN Reason: Pain, Moderate (4-6) Ondansetron HCl (Zofran) 4 mg IV Q8H PRN PRN Reason: Nausea And Vomiting Oxycodone/Acetaminophen (Percocet 5/325) 1 tab PO Q6H PRN PRN Reason: Pain, Moderate (4-6) Sodium Chloride (Sodium Chloride Flush Syringe 10 Ml) 10 ml IV BID FIDELINA Last Admin: 09/11/18 10:30 Dose: 10 ml Documented by: Sodium Chloride (Sodium Chloride Flush Syringe 10 Ml) 10 ml IV PRN PRN PRN Reason: LINE FLUSH Physical Examination Vital signs: Vital Signs Pulse Resp BP Pulse Ox 117 H 16 105/69 100 09/10/18 20:14 09/10/18 20:14 09/10/18 20:14 09/10/18 20:14 Results - Laboratory Findings CBC and BMP: 09/12/18 10:44 09/12/18 10:44 Abnormal lab findings: Abnormal Labs 09/10/18 09/10/18 09/10/18 22:44 22:44 22:44 WBC 30.7 H RBC 3.43 L Plt Count 530 H Lymphocytes % (Manual) 5.0 L Seg Neutrophils # Man 18.7 H Monocytes # (Manual) 1.5 H Sodium 135 L Potassium 6.2 H* Glucose 139 H Lactic Acid 4.30 H* Total Creatine Kinase 09/10/18 09/11/18 09/11/18 22:44 00:08 01:51 WBC RBC Plt Count Lymphocytes % (Manual) Seg Neutrophils # Man Monocytes # (Manual) Sodium Potassium Glucose Lactic Acid 5.80 H* 2.60 H* Total Creatine Kinase 1227 H 09/11/18 09/11/18 09/11/18 02:54 03:25 09:09 WBC RBC Plt Count Lymphocytes % (Manual) Seg Neutrophils # Man Monocytes # (Manual) Sodium 136 L Potassium 5.5 H Glucose 106 H Lactic Acid 4.00 H* Total Creatine Kinase 1367 H
[2018-09-11] MEDS ORDERED: MORPHINE ONE ×2 (18:55→18:56)
[2018-09-11] MEDS ORDERED: TYLENOL ONE (19:58)
[2018-09-11] MEDS ORDERED: NACL 0.9% 1000 ML 1,000 ML ONE (19:58)
--- NOTE | 2018-09-11 20:41 | Consultation ---
REASON FOR CONSULTATION: Status post recent plastic surgical procedure and postoperative bleeding with a possible syncopal attack secondary to bleeding. HISTORY OF PRESENT ILLNESS: The patient is a 28-year-old female, who apparently had a liposuction and gluteal fat injection yesterday morning. According to family, the patient became dizzy when getting out of the car, post-procedure and thus her eventual arrival to the Emergency Room here. She was noted to be bleeding from the OpSites in the gluteal region and also noted to have a low blood pressure on arrival. PAST MEDICAL HISTORY: Pertinent for, 1. Crohn's disease. 2. Anemia. PAST SURGICAL HISTORY: 1. Status post abdominal liposuction in the past. 2. Colonoscopy. ALLERGIES: No known allergies. MEDICATIONS: No medications. FAMILY HISTORY: Negative. SOCIAL HISTORY: Denies any smoking or drinking. PHYSICAL EXAMINATION: GENERAL: At this time reveals the patient to be somewhat somnolent, though she apparently has not received any recent narcotics. She is lying prone in the ER hospital bed. VITAL SIGNS: Currently show her to be running a blood pressure of 113/56, pulse is little high at 115. She is afebrile at 98.6. ABDOMEN: Examination of the buttock area reveals some induration and ecchymosis in both buttocks. There is a small drain noted in the center of the buttock region, but no active bleeding seen. LABORATORY DATA: Lab work at present includes a CBC, which shows a white count of 30.7, H and H is 10.1 and 31.4. IMPRESSION: 1. At this time is that of a 28-year-old female, status post recent plastic surgical procedure including a liposuction and gluteal injections. 2. Rule out recent bleeding from the OpSite, which appears to have stopped. RECOMMENDATIONS: 1. Would be we need to contact the operating physician for transfer take over this patient's care. 2. Since I do not perform Plastic Surgery, I am thus not familiar with this procedure or normal progression of recovery from this procedure. Would need a plastic surgery evaluation if the patient is going to be admitted to our institution. Also, would recommend to monitor her H and H well as cover the OpSite including the drain and incisions with fluffs and Elastoplast tape. Also, heating pad to the ecchymotic areas as this may be a normal presentation post-buttock injection, but also may be a hematoma. Also would recommend pressure girdle to this area. Thank you very much for consultation. JOB# [id number] SHREYAS/AVE
[2018-09-12] MEDS: UNASYN/NS 3 GM/100 ML 3 GM/100 ML BAG IV SCH ×5 (00:09→18:42)
[2018-09-12] MEDS: NACL 0.9% 1000 ML 1,000 ML IV SCH (00:10)
[2018-09-12] MEDS: SODIUM CHLORIDE FLUSH SYRINGE 10 ML IV SCH ×3 (00:10→22:53)
[2018-09-12] MEDS: TYLENOL PO PRN ×3 (07:04→17:15)
[2018-09-12 11:28] LABS: Basophils % (Auto) 0.2 % (0.0-1.8); Hemoglobin 6.3 gm/dl (10.1-14.3); Lymphocytes # (Auto) 1.8 K/mm3 (1.2-5.4); Lymphocytes % (Auto) 16.4 % (13.4-35.0); Mean Corpuscular HGB Conc 33 % (30-34); Mean Corpuscular Volume 91 fl (79-97); Monocytes # (Auto) 0.8 K/mm3 (0.0-0.8); Monocytes % (Auto) 7.5 % (0.0-7.3); Platelet Count 286 K/mm3 (140-440); Red Blood Count 2.08 M/mm3 (3.65-5.03); Red Cell Distribution Width 14.6 % (13.2-15.2)
--- NOTE | 2018-09-12 11:31 | Progress Note ---
Assessment and Plan Assessment and plan: 28-year-old woman who presents after a light suction and fat transfer to the buttocks with weakness bleeding from surgical sites and malaise. Problems sepsis cellulitis Rhabdomyolysis Hyperkalemia Dehydration Acute blood loss anemia Plan attempted to reach her surgeon Dr Samuel, unable to reach him.- Left a message. [phone] -Do not have any plastic surgeon on site, who would be familiar with expected recovery and outcomes -Continue IV fluids, treat hyperkalemia medically -cont abx, and IVF monitor CBC, transfusion, 3 unit prbc ordered -CTA chest neg for PE DVT prophylaxis ; early ambulation History Interval history: had fever overnight buttock and thigh pains improved weakness improved admits to malaise no n/b/d, no cp, no sob Hospitalist Physical - Physical exam Narrative exam: General appearance: Present: no acute distress, well-nourished - EENT Eyes: Present: PERRL ENT: hearing intact, clear oral mucosa - Neck Neck: Present: supple, normal ROM - Respiratory Respiratory effort: normal Respiratory: bilateral: CTA - Cardiovascular Heart Sounds: Present: S1 & S2. Absent: rub, click - Extremities Extremities: pulses symmetrical, No edema Peripheral Pulses: within normal limits - Abdominal General gastrointestinal: Present: soft, non-tender, non-distended, normal bowel sounds Female genitourinary: Present: normal - Integumentary Integumentary: Present: clear, warm (the patient has induration around her buttocks, erythema, tenderness, . There is bruising which is consistent with liposuction of fat transfer), dry - Musculoskeletal Musculoskeletal: gait normal, strength equal bilaterally - Psychiatric Psychiatric: appropriate mood/affect, intact judgment & insight - Neurologic Neurologic: CNII-XII intact, moves all extremities - Constitutional Vitals: Temp Pulse Resp BP Pulse Ox 99.1 F 123 H 17 110/51 99 09/12/18 10:30 09/12/18 05:48 09/12/18 07:04 09/12/18 05:48 09/12/18 05:48 General appearance: Present: no acute distress, well-nourished Results - Labs CBC & Chem 7: 09/12/18 10:44 09/12/18 10:44 Labs: Laboratory Last Values WBC 11.1 K/mm3 (4.5-11.0) H 09/12/18 10:44 RBC 2.08 M/mm3 (3.65-5.03) L 09/12/18 10:44 Hgb 10.1 gm/dl (10.1-14.3) 09/10/18 22:44 Hct 31.4 % (30.3-42.9) 09/10/18 22:44 MCV 91 fl (79-97) 09/12/18 10:44 MCH 30 pg (28-32) 09/12/18 10:44 MCHC 33 % (30-34) 09/12/18 10:44 RDW 14.6 % (13.2-15.2) 09/12/18 10:44 Plt Count 286 K/mm3 (140-440) 09/12/18 10:44 Lymph % (Auto) 16.4 % (13.4-35.0) 09/12/18 10:44 [place] % (Auto) 7.5 % (0.0-7.3) H 09/12/18 10:44 Eos % (Auto) 0.0 % (0.0-4.3) 09/12/18 10:44 Baso % (Auto) 0.2 % (0.0-1.8) 09/12/18 10:44 Lymph # 1.8 K/mm3 (1.2-5.4) 09/12/18 10:44 [place] # 0.8 K/mm3 (0.0-0.8) 09/12/18 10:44 Eos # 0.0 K/mm3 (0.0-0.4) 09/12/18 10:44 Baso # 0.0 K/mm3 (0.0-0.1) 09/12/18 10:44 Add Manual Diff Complete 09/10/18 22:44 Total Counted 100 09/10/18 22:44 Seg Neutrophils % 75.9 % (40.0-70.0) H 09/12/18 10:44 Seg Neuts % (Manual) 61.0 % (40.0-70.0) 09/10/18 22:44 Band Neutrophils % 29.0 % 09/10/18 22:44 Lymphocytes % (Manual) 5.0 % (13.4-35.0) L 09/10/18 22:44 Reactive Lymphs % (Man) 0 % 09/10/18 22:44 Monocytes % (Manual) 5.0 % (0.0-7.3) 09/10/18 22:44 Eosinophils % (Manual) 0 % (0.0-4.3) 09/10/18 22:44 Basophils % (Manual) 0 % (0.0-1.8) 09/10/18 22:44 Metamyelocytes % 0 % 09/10/18 22:44 Myelocytes % 0 % 09/10/18 22:44 Promyelocytes % 0 % 09/10/18 22:44 Blast Cells % 0 % 09/10/18 22:44 Nucleated RBC % Not Reportable 09/10/18 22:44 Seg Neutrophils # 8.4 K/mm3 (1.8-7.7) H 09/12/18 10:44 Seg Neutrophils # Man 18.7 K/mm3 (1.8-7.7) H 09/10/18 22:44 Band Neutrophils # 8.9 K/mm3 09/10/18 22:44 Lymphocytes # (Manual) 1.5 K/mm3 (1.2-5.4) 09/10/18 22:44 Abs React Lymphs (Man) 0.0 K/mm3 09/10/18 22:44 Monocytes # (Manual) 1.5 K/mm3 (0.0-0.8) H 09/10/18 22:44 Eosinophils # (Manual) 0.0 K/mm3 (0.0-0.4) 09/10/18 22:44 Basophils # (Manual) 0.0 K/mm3 (0.0-0.1) 09/10/18 22:44 Metamyelocytes # 0.0 K/mm3 09/10/18 22:44 Myelocytes # 0.0 K/mm3 09/10/18 22:44 Promyelocytes # 0.0 K/mm3 09/10/18 22:44 Blast Cells # 0.0 K/mm3 09/10/18 22:44 WBC Morphology Not Reportable 09/10/18 22:44 Hypersegmented Neuts Not Reportable 09/10/18 22:44 Hyposegmented Neuts Not Reportable 09/10/18 22:44 Hypogranular Neuts Not Reportable 09/10/18 22:44 Smudge Cells Not Reportable 09/10/18 22:44 Toxic Granulation Not Reportable 09/10/18 22:44 Toxic Vacuolation Not Reportable 09/10/18 22:44 Dohle Bodies Not Reportable 09/10/18 22:44 Pelger-Huet Anomaly Not Reportable 09/10/18 22:44 Nasir Rods Not Reportable 09/10/18 22:44 Platelet Estimate Appears increased 09/10/18 22:44 Clumped Platelets Not Reportable 09/10/18 22:44 Plt Clumps, EDTA Not Reportable 09/10/18 22:44 Large Platelets Not Reportable 09/10/18 22:44 Giant Platelets Not Reportable 09/10/18 22:44 Platelet Satelliting Not Reportable 09/10/18 22:44 Plt Morphology Comment Not Reportable 09/10/18 22:44 RBC Morphology Not Reportable 09/10/18 22:44 Dimorphic RBCs Not Reportable 09/10/18 22:44 Polychromasia Not Reportable 09/10/18 22:44 Hypochromasia Not Reportable 09/10/18 22:44 Poikilocytosis Not Reportable 09/10/18 22:44 Anisocytosis 1+ 09/10/18 22:44 Microcytosis Not Reportable 09/10/18 22:44 Macrocytosis Not Reportable 09/10/18 22:44 Spherocytes Not Reportable 09/10/18 22:44 Pappenheimer Bodies Not Reportable 09/10/18 22:44 Sickle Cells Not Reportable 09/10/18 22:44 Target Cells Not Reportable 09/10/18 22:44 Tear Drop Cells Not Reportable 09/10/18 22:44 Ovalocytes Not Reportable 09/10/18 22:44 Helmet Cells Not Reportable 09/10/18 22:44 [place] Bodies Not Reportable 09/10/18 22:44 [place] Rings Not Reportable 09/10/18 22:44 Aurora Cells Not Reportable 09/10/18 22:44 Bite Cells Not Reportable 09/10/18 22:44 Crenated Cell Not Reportable 09/10/18 22:44 Elliptocytes Not Reportable 09/10/18 22:44 Acanthocytes (Spur) Not Reportable 09/10/18 22:44 Rouleaux Not Reportable 09/10/18 22:44 Hemoglobin C Crystals Not Reportable 09/10/18 22:44 Schistocytes Not Reportable 09/10/18 22:44 Malaria parasites Not Reportable 09/10/18 22:44 Will Bodies Not Reportable 09/10/18 22:44 Hem Pathologist Commnt No 09/10/18 22:44 Sodium 136 mmol/L (137-145) L 09/11/18 09:09 Potassium 5.5 mmol/L (3.6-5.0) H 09/11/18 09:09 Chloride 102.2 mmol/L (98-107) 09/11/18 09:09 Carbon Dioxide 23 mmol/L (22-30) 09/11/18 09:09 Anion Gap 16 mmol/L 09/11/18 09:09 BUN 11 mg/dL (7-17) 09/11/18 09:09 Creatinine 0.7 mg/dL (0.7-1.2) 09/11/18 09:09 Estimated GFR > 60 ml/min 09/11/18 09:09 BUN/Creatinine Ratio 16 % 09/11/18 09:09 Glucose 106 mg/dL (65-100) H 09/11/18 09:09 Lactic Acid 1.80 mmol/L (0.7-2.0) 09/11/18 04:47 Calcium 9.1 mg/dL (8.4-10.2) 09/11/18 09:09 Total Bilirubin 0.50 mg/dL (0.1-1.2) 09/10/18 22:44 AST 23 units/L (5-40) 09/10/18 22:44 ALT 13 units/L (7-56) 09/10/18 22:44 Alkaline Phosphatase 81 units/L (35-129) 09/10/18 22:44 Total Creatine Kinase 1367 units/L (30-135) H 09/11/18 03:25 CK-MB (CK-2) 3.1 ng/mL (0.0-4.0) 09/10/18 22:44 CK-MB (CK-2) Rel Index 0.2 (0-4) 09/10/18 22:44 Troponin T < 0.010 ng/mL (0.00-0.029) 09/10/18 22:44 C-Reactive Protein 3.20 mg/dL (0.00-1.30) H 09/11/18 09:09 Total Protein 7.6 g/dL (6.3-8.2) 09/10/18 22:44 Albumin 3.9 g/dL (3.9-5) 09/10/18 22:44 Albumin/Globulin Ratio 1.1 % 09/10/18 22:44 HCG, Qual Negative (Negative) 09/11/18 00:10 Urine Color Yellow (Yellow) 09/11/18 01:30 Urine Turbidity Clear (Clear) 09/11/18 01:30 Urine pH 5.0 (5.0-7.0) 09/11/18 01:30 Ur Specific [place] 1.016 (1.003-1.030) 09/11/18 01:30 Urine Protein <15 mg/dl mg/dL (Negative) 09/11/18 01:30 Urine Glucose (UA) Negative mg/dL (Negative) 09/11/18 01:30 Urine Ketones Trace mg/dL (Negative) 09/11/18 01:30 Urine Blood Negative (Negative) 09/11/18 01:30 Urine Nitrite Negative (Negative) 09/11/18 01:30 Urine Bilirubin Negative (Negative) 09/11/18 01:30 Urine Urobilinogen < 2.0 mg/dL (<2.0) 09/11/18 01:30 Ur Leukocyte Esterase Negative (Negative) 09/11/18 01:30 Urine WBC (Auto) 1.0 /HPF (0.0-6.0) 09/11/18 01:30 Urine RBC (Auto) 1.0 /HPF (0.0-6.0) 09/11/18 01:30 U Epithel Cells (Auto) 1.0 /HPF (0-13.0) 09/11/18 01:30 Urine Bacteria (Auto) 1+ /HPF (Negative) 09/11/18 01:30 Amorphous Crystals 1+ 09/11/18 01:30 Hyaline Casts 46 /LPF 09/11/18 01:30 Urine Mucus 2+ /HPF 09/11/18 01:30 Blood Type A POSITIVE 09/10/18 22:44 Antibody Screen Negative 09/10/18 22:44
[2018-09-12 11:43] LABS: BUN/Creatinine Ratio 11; Blood Urea Nitrogen 8 mg/dL (7-17); Calcium 8.2 mg/dL (8.4-10.2)
[2018-09-12 11:44] LABS: Hemolysis Index 1
[2018-09-12 12:11] LABS: Hematocrit 18.9 % (30.3-42.9)
[2018-09-12] MEDS ORDERED: NACL 0.9% 500 ML 500 ML IV ONE (12:16)
--- NOTE | 2018-09-12 12:20 | Progress Note ---
Assessment and Plan Pt somnolent. no specific compl no signs of active bleeding. wbc down h/h this am extremely low 6.3/18.9 tachycardic still spiking Temps extensive bleeding from surgical procedure outside of institution. sepsis? STAT PRBC transfusion ID eval pt needs plastic surg eval operating Dr. needs to be contacted for possible transfer and f/u care Selected Entries 09/12/18 09/12/18 05:48 07:04 Temperature 101.6 F H Pulse Rate 123 H Respiratory 17 Rate Blood Pressure 110/51 Laboratory Tests 09/12/18 10:44 WBC 11.1 H extremely low Objective Vital Signs - 12hr 09/12/18 09/12/18 09/12/18 05:48 07:04 10:30 Temperature 101.6 F H 99.1 F Pulse Rate 123 H Respiratory 20 17 Rate Blood Pressure 110/51 O2 Sat by Pulse 99 Oximetry 09/12/18 11:24 Temperature 99.4 F Pulse Rate 122 H Respiratory 20 Rate Blood Pressure 126/71 O2 Sat by Pulse 100 Oximetry - Labs 09/12/18 10:44 09/12/18 10:44 Diabetes panel 09/12/18 Range/Units 10:44 Sodium 138 (137-145) mmol/L Potassium 3.8 D (3.6-5.0) mmol/L Chloride 103.3 (98-107) mmol/L Carbon Dioxide 24 (22-30) mmol/L BUN 8 (7-17) mg/dL Creatinine 0.7 (0.7-1.2) mg/dL Glucose 115 H (65-100) mg/dL Calcium 8.2 L (8.4-10.2) mg/dL Calcium panel 09/12/18 Range/Units 10:44 Calcium 8.2 L (8.4-10.2) mg/dL Pituitary panel 09/12/18 Range/Units 10:44 Sodium 138 (137-145) mmol/L Potassium 3.8 D (3.6-5.0) mmol/L Chloride 103.3 (98-107) mmol/L Carbon Dioxide 24 (22-30) mmol/L BUN 8 (7-17) mg/dL Creatinine 0.7 (0.7-1.2) mg/dL Glucose 115 H (65-100) mg/dL Calcium 8.2 L (8.4-10.2) mg/dL Adrenal panel 09/12/18 Range/Units 10:44 Sodium 138 (137-145) mmol/L Potassium 3.8 D (3.6-5.0) mmol/L Chloride 103.3 (98-107) mmol/L Carbon Dioxide 24 (22-30) mmol/L BUN 8 (7-17) mg/dL Creatinine 0.7 (0.7-1.2) mg/dL Glucose 115 H (65-100) mg/dL Calcium 8.2 L (8.4-10.2) mg/dL
--- NOTE | 2018-09-12 18:56 | Consultation ---
History of Present Illness - Reason for Consult Consult date: 09/12/18 leukocytosis Requesting physician: MARIXA SIMPSON - History of Present Illness 28 y/o female with Crohn's disease in remission; s/p liposuction to the abdominal area in December 2017 and liposuction and [place] But Lift (fat transfer to buttocks) by Dr Richmond Samuel on 09/10/2018; admitted on due to syncope episode after surgical procedure. Liposuction was done as an outpatient procedure, patient reports nausea and vomiting x 1 immediately after surgery. She then left the facility and went home in a car driven by family members, at home she passed out while transferring from the car to her house. Family noted surgical dressings with blood. She denies any fever, chills, diarrhea. She denies previous Staph skin infection. She reports some cough, sporadic after procedure. In the ED, temperature 95.9, heart rate 117, respirations 16, O2 sat, blood pressure 105/69. White count 30.7. Hemoglobin 10.1. Plat 530. Bands 29%. K 6.2. Creat 0.7. Lactate 5.3. CK 1227. CRP 3.2. CT scan showed no PE, apparently the3.2 Blood cx and urine cx negative. CT abd no abscess, no hematoma, diffuse posterior subcutaneous emphysema. CTA no PE, atelectasis. Repeat CBC showed Hg 6.3. Review of Systems: General: no fever, chills, nightsweats, unintentional weight change, or change in appetite +syncope Cutaneous: no rash, pruritus +bloody wounds Head: no headaches or injury Eyes: no changes in vision, eye pain, double vision Ears: no ear pain, ear discharge, ringing or hearing loss Nose: no nose bleeding, stuffiness Mouth & throat: no bleeding gums, no horseness, no dental problems, or swollen glands Neck: no pain, node enlargement/lumps, tyroid enlargement or tenderness Respiratory: + cough, no wheezing, sputum, hemoptysis, pleuritic chest pain Cardiovascular: no chest pain, leg edema, cyanosis, SHANNON, orthopnea Musculoskeletal: no decreased joint motion, bone or joint pain, joint swelling, muscle aches +pain at surg sites Gastrointestinal: no nausea, + vomiting x 1, no hematemesis, diarrhea, constipation, melena, bright red blood in stools, fecal incontinence, jaundice Genitourinary/Reproductive: no frequent urination, dysuria, hematuria, incontinence Neurogical: no seizures, no headaches, no weakness, no paresthesias, no loss of speech or vision; no memory loss, no vertigo, no tremors, no numbness Psychiatric: stable mood; no excessive anxiety, sadness or moodiness Past History Past Medical History: other (Crohns) Past Surgical History: Other (as HPI) Medications and Allergies Allergies Allergy/AdvReac Type Severity Reaction Status Date / Time No Known Allergies Allergy Verified 09/10/18 20:13 Home Medications Medication Instructions Recorded Confirmed Last Taken Type No Known Home Medications [No 09/11/18 09/11/18 Unknown History Reported Home Medications] Active Meds: Active Medications Acetaminophen (Tylenol) 650 mg PO Q4H PRN PRN Reason: Pain MILD(1-3)/Fever >100.5/MILLER Last Admin: 09/12/18 17:15 Dose: 650 mg Documented by: Enoxaparin Sodium (Lovenox) 40 mg SUB-Q QDAY@2200 FIDELINA Ampicillin Sodium/Sulbactam Sodium (Unasyn/Ns 3 Gm/100 Ml) 3 gm in 100 mls @ 200 mls/hr IV Q6HR FIDELINA; Protocol Last Admin: 09/12/18 18:42 Dose: 200 mls/hr Documented by: Sodium Chloride (Nacl 0.9% 1000 Ml) 1,000 mls @ 125 mls/hr IV DIRECT FIDELINA Last Admin: 09/12/18 00:10 Dose: 125 mls/hr Documented by: Morphine Sulfate (Morphine) 2 mg IV Q4H PRN PRN Reason: Pain, Moderate (4-6) Ondansetron HCl (Zofran) 4 mg IV Q8H PRN PRN Reason: Nausea And Vomiting Oxycodone/Acetaminophen (Percocet 5/325) 1 tab PO Q6H PRN PRN Reason: Pain, Moderate (4-6) Sodium Chloride (Sodium Chloride Flush Syringe 10 Ml) 10 ml IV BID [facility] Last Admin: 09/12/18 12:49 Dose: 10 ml Documented by: Sodium Chloride (Sodium Chloride Flush Syringe 10 Ml) 10 ml IV PRN PRN PRN Reason: LINE FLUSH Physical Examination - Physical Exam Narrative exam: General appearance: Alert in NAD, conversant Eyes: anicteric sclerae, moist conjunctivae; no lid-lag; PERRLA HENT: Atraumatic; oropharynx clear Neck: Trachea midline; supple, no thyromegaly or lymphadenopathy Lungs: CTA, with normal respiratory effort and no intercostal retractions CV: tachy Abdomen: Soft, non-tender; no masses or hepatosplenomegaly Extremities: No peripheral edema or extremity lymphadenopathy Skin: +buttocks surgical site +induration unable to eval due to dressings/severe pain Psych: Appropriate affect, alert and oriented to person, place and time. Neuro: alert and oriented x 3. Moving all extermities Lines: No CVL / PICC - Constitutional Vitals: Vital Signs Temp Pulse Resp BP Pulse Ox 99.1 F 100 H 18 107/61 99 09/12/18 18:16 09/12/18 18:16 09/12/18 18:16 09/12/18 18:16 09/12/18 18:16 Temperature -Last 24 Hours Temperature 99.1 F Temperature 99.9 F Temperature 99.6 F Temperature 99.6 F Temperature 99.1 F Temperature 99.1 F Temperature 99.7 F Temperature 98.8 F Temperature 99.4 F Temperature 99.1 F Temperature 101.6 F Temperature 99.2 F Temperature 98.1 F Temperature 98.8 F Temperature 100.0 F Results - Labs CBC & Chem 7: 09/12/18 10:44 09/12/18 10:44 Labs: Abnormal lab results 09/10/18 09/12/18 09/12/18 Range/Units 22:44 10:44 10:44 WBC 11.1 H (4.5-11.0) K/mm3 RBC 2.08 L (3.65-5.03) M/mm3 Hgb 6.3 L D (10.1-14.3) gm/dl Hct 18.9 L* D (30.3-42.9) % [place] % (Auto) 7.5 H (0.0-7.3) % Seg Neutrophils % 75.9 H (40.0-70.0) % Seg Neutrophils # 8.4 H (1.8-7.7) K/mm3 Glucose 115 H (65-100) mg/dL Calcium 8.2 L (8.4-10.2) mg/dL Crossmatch See Detail Assessment and Plan Cultures: 09/11/2018 Blood cultures no growth so far 09/10/2018 Urine cultures neg Assessment: 28 y/o female with Crohn's disease in remission; s/p liposuction to the abdominal area in December 2017 and liposuction and [place] But Lift (fat transfer to buttocks) by Dr Richmond Samuel on 09/10/2018; admitted on 09/11/18 due to syncope: 1) SIRS: manifested by fever, leukocytosis, elevated bandemia and lactate, hypotension; likely from acute blood loss +/- large fat transfer. Blood cx negative. UA negative. CXR negative. CTA negative. CT abdomen no abscess or collections or hematoma. Doubt surgical site infection as it would be too early presentation. No acute respiratory failure noted. ?fat emboli less likely 2) Syncope: from #1 3) Severe anemia: from recent surgical procedure, Repeat CBC showed Hg 6.3. Recommendations: - follow-up blood cultures, urine culture - continue unasyn - certainly transfer to Dr Richmond Samuel's inpatient facility would be ideal - general surgery on board - monitor H/H and WBC Will follow up with you. Dr Calderón rounding on Friday Dori Parish MD Infectious Diseases Senior Treasury Analyst [facility] M [phone] O [phone]
--- NOTE | 2018-09-12 21:16 | Consultation ---
PULMONARY CRITICAL CARE CONSULT NOTE CONSULTING PHYSICIAN: Dr. Becker, Emergency Room physician. REASON FOR CONSULTATION: 1. Sepsis syndrome. 2. Syncope. CHIEF COMPLAINT AND HISTORY OF PRESENT ILLNESS: As follows: The patient is a 28-year-old -Martiniquais female with past medical history significant amongst other things for a diagnosis of obesity, who came into the Emergency Room complaining of syncopal episodes and postoperative bleeding. She was complaining of generalized weakness and fatigue. She had cosmetic surgery with liposuction essentially to the gluteal region and a fat transfer to her buttocks. She had normal hemoglobin prior to going to the surgical intervention and recorded some significant bleeding from her surgical sites. She was evaluated in the Emergency Room. She was lightheaded, dizzy when she came in. After evaluation by the Emergency physician amongst other things, she was found to have signs and symptoms of essentially of systemic inflammatory response syndrome. She had a severe leukocytosis. She was severely anemic with her serum hemoglobin of 6.3. Because of the fear of impending overt severe sepsis with shock, we were asked to assist with consultation. When I stopped by to see the patient, she was resting in the Emergency Room, lying on her belly. Mother was in the room. She denied nausea or vomiting. She denied acute chest pain. She denied fevers or chills. She was feeling better. With regards to her smoking status, she denies any history of tobacco use or abuse whatsoever. She also admitted to a history of anemia prior to coming into the Emergency Room. This really is as much of the history of presentation as I have. PAST MEDICAL HISTORY: 1. Obesity. 2. Anemia. PAST SURGICAL HISTORY: Recent fat transfer from her back to her buttocks. MEDICATIONS: She was on at the time I stopped by to see her were reviewed. Pertinent medications included the following: She was on Tylenol 650 mg p.o. q. 4 hours p.r.n. mild pain or fevers greater than 100.5 degrees Fahrenheit, Unasyn 3 grams IV q. 6 hours, morphine sulfate 2 mg IV q. 4 hours p.r.n., Zofran 4 mg IV q. 8 hours p.r.n., oxycodone/Tylenol or Percocet 5/325 one tablet p.o. q. 6 hours p.r.n. moderate pain. ALLERGIES: Denies any known drug allergies. DIET: Obese lady. Denies acute weight loss or gain in the preceding few weeks to months. FAMILY AND SOCIAL HISTORY: She lives in the community. Denies alcohol, tobacco, or illicit drug use or abuse. Family history, otherwise, noncontributory. REVIEW OF SYSTEMS: She had near loss of consciousness, actually presyncope. Denied gross hematochezia or melena. Denied gross hematuria or dysuria. No hematemesis. No hemoptysis. She had generalized constitutional symptoms with weakness with malaise And with subjective fevers. She denied polydipsia, polyuria. Denied heat or cold intolerance. Denied any new rash on her body. Complete 13-system review of systems obtained. Pertinent positives and/or negatives as in body of history above, otherwise, they are noncontributory. PHYSICAL EXAMINATION: VITAL SIGNS: At initial presentation, she was hypothermic, temperature 95.9 degrees Fahrenheit rectally, pulse of 117, respiratory rate 16, blood pressure 105/69, oxygen sats 100%, inspired oxygen concentration at that time was not recorded. When I stopped by to see her, O2 sats were 98% that was on room air. GENERAL: She is a young -Martiniquais female, normocephalic, atraumatic, talking in full sentences with normal respiratory effort, but does look distressed. HEAD, EYES, EARS, NOSE AND THROAT: She is anicteric. No conjunctival erythema. Oropharynx is moist. No thyromegaly. No gross jugular venous distention. No palpable lymph nodes in the supraclavicular or submandibular lymph node chains. LUNGS: Auscultation of both lung elena unremarkable. Lungs are clear bilaterally. HEART: Heart sounds 1 and 2 are heard, regular rate and rhythm at the time of my evaluation, without rubs or murmurs. ABDOMEN: Soft, full, bowel sounds are positive, nontender, no palpable hepatosplenomegaly, a little difficult to evaluate her abdomen since she was lying on the abdomen and really could not lie on her back. EXTREMITIES: Without overt digital clubbing or cyanosis. No significant pedal edema. NEUROLOGIC: Pupils are equal, round, about 4 mm, reactive to light. Extraocular muscle movements are intact. She moves all 4 extremities spontaneously. SKIN: In the skin of the gluteal region, she has a dressing I would say about 30 cm x 10 cm over the area of fat transfer. It is tender even around the edges of the dressing and there is erythema around the edges of the dressing. No pus is expressed. Otherwise, no skin mottling. NEUROLOGIC: Mood is normal and affect is appropriate. LABORATORY DATA: From my review are as follows: Admission white cell count 30,700 with a hemoglobin of 10.1, hematocrit of 31.4, platelet count of 530. She had 29% band neutrophils reported with that. Serum sodium was 135, potassium was 6.2, chloride 99, bicarbonate 22, BUN 12, creatinine 0.7 and glucose of 139. Lactic acid level was 4.3. CPK was 1227. Liver function tests are within normal limits. Troponin was within normal limits. Urinalysis negative for nitrites and leukocyte esterase. Repeat lactic acid level is down to 1.8. Repeat potassium is down to 5.5. Microbiology studies: Two sets of blood cultures no growth to date. RADIOGRAPHIC STUDIES: I have reviewed. Chest x-ray is unremarkable. I have also reviewed the radiologist's interpretation on both the CT of the chest as well as the CT of the abdomen and pelvis. Actually, CT angiogram was done of the chest. Now, the CT of the abdomen and pelvis reports no intra-abdominal abnormality. No subcutaneous hematoma or abscess. They do have some posterior subcutaneous emphysema around the gluteal region. 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 ASSESSMENT AND PLAN: 1. Sepsis syndrome secondary to 2. 2. Cellulitis, status post 3. 3. Fat transfer to the gluteal region. 4. Acute kidney injury. 5. Hyperkalemia. 6. Lactic acidosis. 7. Elevated serum creatine kinase. 8. Obesity. 9. History of anemia. PLAN: I think she may be low dickinson have signs seem to be trending in the right direction. We will continue volume resuscitation. I do agree with empiric Unasyn monotherapy for broad-spectrum antibiotic therapy coverage. She has been seen by this general surgeon. No acute intervention recommended. I did speak at length with her plastic surgeon who feels that the only thing we should really watch out for her bleeding. We will keep an eye on that. There is no active bleeding at the time of my evaluation. We will continue medical management of hyperkalemia. Inputs and outputs will be monitored. Electrolytes will be corrected as necessary. Lactic acid levels have normalized at this point. The elevated serum creatine kinase likely related to liposuction and fat transfer procedure. We will trend that while monitoring her renal function. She will be placed on GI and DVT prophylaxis. Flu and pneumonia vaccination will be addressed per protocol. I have discussed the care plan with the patient and her family and they are in agreement. Thank you very much for the consult. We will follow along. We will make further recommendations as picture progresses/becomes clearer. Hopefully, if she continues to improve, she can be transferred to the telemetry floor. Otherwise, she will be admitted to the Intensive Care Unit. JOB# [id number] MERA/AVE
[2018-09-12] MEDS ORDERED: LOVENOX SUB-Q SCH (22:00)
--- NOTE | 2018-09-12 23:48 | Progress Note ---
Assessment and Plan Patient alert, awake. No complaint of chest pain, shortness of breath and cough. Patient is on room air. O2 saturation 100%. Patient recently has liposuction. Running low grade temp at times. - Patient Problems (1) Lactic acidosis Current Visit: Yes Status: Acute Plan to address problem: Improving. Bicarb 24 Anion gap 15. (2) Rhabdomyolysis Current Visit: Yes Status: Acute Qualifiers: Rhabdomyolysis type: non-traumatic Qualified Code(s): M62.82 - Rhabdomyolysis Plan to address problem: Patient is on I/V fluids NSS at 125 ml/nr. Recommend to repeat CPK. (3) Sepsis Current Visit: Yes Status: Acute Qualifiers: Sepsis type: sepsis due to unspecified organism Qualified Code(s): A41.9 - Sepsis, unspecified organism Plan to address problem: Patient is on unasyn. (4) Syncope Current Visit: Yes Status: Acute Qualifiers: Syncope type: unspecified Qualified Code(s): R55 - Syncope and collapse Plan to address problem: Patient alert, awake at this time. Management as per primary care and neurology. Subjective Date of service: 09/12/18 Interval history: Patient alert, awake. No complaint of chest pain, shortness of breath and cough. Patient is on room air. O2 saturation 100%. Patient recently has liposuction. Running low grade temp at times. Objective Vital Signs - 12hr 09/12/18 09/12/18 09/12/18 15:31 16:01 16:16 Temperature 98.8 F 99.7 F H Pulse Rate 121 H 121 H 119 H Respiratory 18 18 18 Rate Blood Pressure 108/61 108/61 121/65 O2 Sat by Pulse 99 99 97 Oximetry 09/12/18 09/12/18 09/12/18 16:46 17:16 17:46 Temperature 99.1 F 99.1 F 99.6 F Pulse Rate 108 H 117 H 117 H Respiratory 18 16 20 Rate Blood Pressure 100/48 114/63 112/63 O2 Sat by Pulse 100 100 98 Oximetry 09/12/18 09/12/18 09/12/18 17:52 18:16 18:46 Temperature 99.6 F 99.1 F 99.1 F Pulse Rate 117 H 100 H 110 H Respiratory 20 18 20 Rate Blood Pressure 122/63 107/61 130/74 O2 Sat by Pulse 98 99 99 Oximetry 09/12/18 19:16 Temperature 99.7 F H Pulse Rate 119 H Respiratory 20 Rate Blood Pressure 108/59 O2 Sat by Pulse 99 Oximetry Constitutional: no acute distress, alert Eyes: non-icteric ENT: oropharynx moist Neck: supple, no lymphadenopathy Ascultation: Bilateral: clear Cardiovascular: regular rate and rhythm Gastrointestinal: normoactive bowel sounds Integumentary: normal Extremities: no cyanosis, no edema Neurologic: normal mental status, non-focal exam, pupils equal and round, CN II- XII normal Psychiatric: mood appropriate CBC and BMP: 09/12/18 10:44 09/13/18 05:35 Abnormal lab findings: Abnormal Labs 09/10/18 09/10/18 09/10/18 22:44 22:44 22:44 WBC 30.7 H RBC 3.43 L Hgb Hct Plt Count 530 H [place] % (Auto) Seg Neutrophils % Lymphocytes % (Manual) 5.0 L Seg Neutrophils # Seg Neutrophils # Man 18.7 H Monocytes # (Manual) 1.5 H Sodium 135 L Potassium 6.2 H* Glucose 139 H Lactic Acid 4.30 H* Calcium Total Creatine Kinase C-Reactive Protein Crossmatch 09/10/18 09/10/18 09/11/18 22:44 22:44 00:08 WBC RBC Hgb Hct Plt Count [place] % (Auto) Seg Neutrophils % Lymphocytes % (Manual) Seg Neutrophils # Seg Neutrophils # Man Monocytes # (Manual) Sodium Potassium Glucose Lactic Acid 5.80 H* Calcium Total Creatine Kinase 1227 H C-Reactive Protein Crossmatch See Detail 09/11/18 09/11/18 09/11/18 01:51 02:54 03:25 WBC RBC Hgb Hct Plt Count [place] % (Auto) Seg Neutrophils % Lymphocytes % (Manual) Seg Neutrophils # Seg Neutrophils # Man Monocytes # (Manual) Sodium Potassium Glucose Lactic Acid 2.60 H* 4.00 H* Calcium Total Creatine Kinase 1367 H C-Reactive Protein Crossmatch 09/11/18 09/11/18 09/12/18 09:09 09:09 10:44 WBC 11.1 H RBC 2.08 L Hgb 6.3 L D Hct 18.9 L* D Plt Count [place] % (Auto) 7.5 H Seg Neutrophils % 75.9 H Lymphocytes % (Manual) Seg Neutrophils # 8.4 H Seg Neutrophils # Man Monocytes # (Manual) Sodium 136 L Potassium 5.5 H Glucose 106 H Lactic Acid Calcium Total Creatine Kinase C-Reactive Protein 3.20 H Crossmatch 09/12/18 10:44 WBC RBC Hgb Hct Plt Count [place] % (Auto) Seg Neutrophils % Lymphocytes % (Manual) Seg Neutrophils # Seg Neutrophils # Man Monocytes # (Manual) Sodium Potassium Glucose 115 H Lactic Acid Calcium 8.2 L Total Creatine Kinase C-Reactive Protein Crossmatch Chest x-ray: report reviewed (No acute cardiopulmonary disease.), image reviewed
[2018-09-13] MEDS: UNASYN/NS 3 GM/100 ML 3 GM/100 ML BAG IV SCH ×4 (02:33→17:06)
[2018-09-13 06:17] LABS: BUN/Creatinine Ratio 12; Blood Urea Nitrogen 6 mg/dL (7-17); Calcium 8.3 mg/dL (8.4-10.2); Hemolysis Index 18
[2018-09-13] MEDS: NACL 0.9% 1000 ML 1,000 ML IV SCH ×2 (09:45→22:25)
--- NOTE | 2018-09-13 10:25 | Progress Note ---
Assessment and Plan Assessment and plan: 28-year-old woman who presents after a light suction and fat transfer to the buttocks with weakness bleeding from surgical sites and malaise. Problems sepsis cellulitis Rhabdomyolysis Hyperkalemia Dehydration Acute blood loss anemia Plan -spoke to her surgeon Dr Richmond Samuel, . [phone], he agrees with current care, he suggested that she wear compression garments which he had provided for her, He does not have an inpatient facility to transfer her to at this time -Do not have any plastic surgeon on site, who would be familiar with expected recovery and outcomes -Hyperkalemia resolved with IVF -cont abx, and IVF monitor CBC, sp transfusion, 3 unit prbc , fup H/H -CTA chest neg for PE DVT prophylaxis ; early ambulation History Interval history: had fever overnight buttock and thigh pains improved weakness improved admits to malaise no n/b/d, no cp, no sob Hospitalist Physical - Physical exam Narrative exam: General appearance: Present: no acute distress, well-nourished - EENT Eyes: Present: PERRL ENT: hearing intact, clear oral mucosa - Neck Neck: Present: supple, normal ROM - Respiratory Respiratory effort: normal Respiratory: bilateral: CTA - Cardiovascular Heart Sounds: Present: S1 & S2. Absent: rub, click - Extremities Extremities: pulses symmetrical, No edema Peripheral Pulses: within normal limits - Abdominal General gastrointestinal: Present: soft, non-tender, non-distended, normal bowel sounds Female genitourinary: Present: normal - Integumentary Integumentary: Present: clear, warm (the patient has induration around her buttocks, erythema, tenderness, . There is bruising which is consistent with liposuction of fat transfer), dry - Musculoskeletal Musculoskeletal: gait normal, strength equal bilaterally - Psychiatric Psychiatric: appropriate mood/affect, intact judgment & insight - Neurologic Neurologic: CNII-XII intact, moves all extremities - Constitutional Vitals: Temp Pulse Resp BP Pulse Ox 98.6 F 114 H 18 120/69 98 09/13/18 09:20 09/13/18 09:20 09/13/18 09:20 09/13/18 09:20 09/13/18 09:20 General appearance: Present: no acute distress, well-nourished Results - Labs CBC & Chem 7: 09/12/18 10:44 09/13/18 05:35 Labs: Laboratory Last Values WBC 11.1 K/mm3 (4.5-11.0) H 09/12/18 10:44 RBC 2.08 M/mm3 (3.65-5.03) L 09/12/18 10:44 Hgb 6.3 gm/dl (10.1-14.3) L D 09/12/18 10:44 Hct 18.9 % (30.3-42.9) L* D 09/12/18 10:44 MCV 91 fl (79-97) 09/12/18 10:44 MCH 30 pg (28-32) 09/12/18 10:44 MCHC 33 % (30-34) 09/12/18 10:44 RDW 14.6 % (13.2-15.2) 09/12/18 10:44 Plt Count 286 K/mm3 (140-440) 09/12/18 10:44 Lymph % (Auto) 16.4 % (13.4-35.0) 09/12/18 10:44 [place] % (Auto) 7.5 % (0.0-7.3) H 09/12/18 10:44 Eos % (Auto) 0.0 % (0.0-4.3) 09/12/18 10:44 Baso % (Auto) 0.2 % (0.0-1.8) 09/12/18 10:44 Lymph # 1.8 K/mm3 (1.2-5.4) 09/12/18 10:44 [place] # 0.8 K/mm3 (0.0-0.8) 09/12/18 10:44 Eos # 0.0 K/mm3 (0.0-0.4) 09/12/18 10:44 Baso # 0.0 K/mm3 (0.0-0.1) 09/12/18 10:44 Add Manual Diff Complete 09/10/18 22:44 Total Counted 100 09/10/18 22:44 Seg Neutrophils % 75.9 % (40.0-70.0) H 09/12/18 10:44 Seg Neuts % (Manual) 61.0 % (40.0-70.0) 09/10/18 22:44 Band Neutrophils % 29.0 % 09/10/18 22:44 Lymphocytes % (Manual) 5.0 % (13.4-35.0) L 09/10/18 22:44 Reactive Lymphs % (Man) 0 % 09/10/18 22:44 Monocytes % (Manual) 5.0 % (0.0-7.3) 09/10/18 22:44 Eosinophils % (Manual) 0 % (0.0-4.3) 09/10/18 22:44 Basophils % (Manual) 0 % (0.0-1.8) 09/10/18 22:44 Metamyelocytes % 0 % 09/10/18 22:44 Myelocytes % 0 % 09/10/18 22:44 Promyelocytes % 0 % 09/10/18 22:44 Blast Cells % 0 % 09/10/18 22:44 Nucleated RBC % Not Reportable 09/10/18 22:44 Seg Neutrophils # 8.4 K/mm3 (1.8-7.7) H 09/12/18 10:44 Seg Neutrophils # Man 18.7 K/mm3 (1.8-7.7) H 09/10/18 22:44 Band Neutrophils # 8.9 K/mm3 09/10/18 22:44 Lymphocytes # (Manual) 1.5 K/mm3 (1.2-5.4) 09/10/18 22:44 Abs React Lymphs (Man) 0.0 K/mm3 09/10/18 22:44 Monocytes # (Manual) 1.5 K/mm3 (0.0-0.8) H 09/10/18 22:44 Eosinophils # (Manual) 0.0 K/mm3 (0.0-0.4) 09/10/18 22:44 Basophils # (Manual) 0.0 K/mm3 (0.0-0.1) 09/10/18 22:44 Metamyelocytes # 0.0 K/mm3 09/10/18:44 Myelocytes # 0.0 K/mm3 09/10/18 22:44 Promyelocytes # 0.0 K/mm3 09/10/18 22:44 Blast Cells # 0.0 K/mm3 09/10/18 22:44 WBC Morphology Not Reportable 09/10/18 22:44 Hypersegmented Neuts Not Reportable 09/10/18 22:44 Hyposegmented Neuts Not Reportable 09/10/18 22:44 Hypogranular Neuts Not Reportable 09/10/18 22:44 Smudge Cells Not Reportable 09/10/18 22:44 Toxic Granulation Not Reportable 09/10/18 22:44 Toxic Vacuolation Not Reportable 09/10/18 22:44 Dohle Bodies Not Reportable 09/10/18 22:44 Pelger-Huet Anomaly Not Reportable 09/10/18 22:44 Nasir Rods Not Reportable 09/10/18 22:44 Platelet Estimate Appears increased 09/10/18 22:44 Clumped Platelets Not Reportable 09/10/18 22:44 Plt Clumps, EDTA Not Reportable 09/10/18 22:44 Large Platelets Not Reportable 09/10/18 22:44 Giant Platelets Not Reportable 09/10/18 22:44 Platelet Satelliting Not Reportable 09/10/18 22:44 Plt Morphology Comment Not Reportable 09/10/18 22:44 RBC Morphology Not Reportable 09/10/18 22:44 Dimorphic RBCs Not Reportable 09/10/18 22:44 Polychromasia Not Reportable 09/10/18 22:44 Hypochromasia Not Reportable 09/10/18 22:44 Poikilocytosis Not Reportable 09/10/18 22:44 Anisocytosis 1+ 09/10/18 22:44 Microcytosis Not Reportable 09/10/18 22:44 Macrocytosis Not Reportable 09/10/18 22:44 Spherocytes Not Reportable 09/10/18 22:44 Pappenheimer Bodies Not Reportable 09/10/18 22:44 Sickle Cells Not Reportable 09/10/18 22:44 Target Cells Not Reportable 09/10/18 22:44 Tear Drop Cells Not Reportable 09/10/18 22:44 Ovalocytes Not Reportable 09/10/18 22:44 Helmet Cells Not Reportable 09/10/18 22:44 Bailey-Wever Bodies Not Reportable 09/10/18 22:44 Thayne Rings Not Reportable 09/10/18 22:44 Beau Cells Not Reportable 09/10/18 22:44 Bite Cells Not Reportable 09/10/18 22:44 Crenated Cell Not Reportable 09/10/18 22:44 Elliptocytes Not Reportable 09/10/18 22:44 Acanthocytes (Spur) Not Reportable 09/10/18 22:44 Rouleaux Not Reportable 09/10/18 22:44 Hemoglobin C Crystals Not Reportable 09/10/18 22:44 Schistocytes Not Reportable 09/10/18 22:44 Malaria parasites Not Reportable 09/10/18 22:44 Will Bodies Not Reportable 09/10/18 22:44 Hem Pathologist Commnt No 09/10/18 22:44 Sodium 138 mmol/L (137-145) 09/13/18 05:35 Potassium 3.9 mmol/L (3.6-5.0) 09/13/18 05:35 Chloride 104.3 mmol/L (98-107) 09/13/18 05:35 Carbon Dioxide 24 mmol/L (22-30) 09/13/18 05:35 Anion Gap 14 mmol/L 09/13/18 05:35 BUN 6 mg/dL (7-17) L 09/13/18 05:35 Creatinine 0.5 mg/dL (0.7-1.2) L 09/13/18 05:35 Estimated GFR > 60 ml/min 09/13/18 05:35 BUN/Creatinine Ratio 12 % 09/13/18 05:35 Glucose 93 mg/dL (65-100) 09/13/18 05:35 Lactic Acid 1.80 mmol/L (0.7-2.0) 09/11/18 04:47 Calcium 8.3 mg/dL (8.4-10.2) L 09/13/18 05:35 Total Bilirubin 0.50 mg/dL (0.1-1.2) 09/10/18 22:44 AST 23 units/L (5-40) 09/10/18 22:44 ALT 13 units/L (7-56) 09/10/18 22:44 Alkaline Phosphatase 81 units/L (35-129) 09/10/18 22:44 Total Creatine Kinase 1367 units/L (30-135) H 09/11/18 03:25 CK-MB (CK-2) 3.1 ng/mL (0.0-4.0) 09/10/18 22:44 CK-MB (CK-2) Rel Index 0.2 (0-4) 09/10/18 22:44 Troponin T < 0.010 ng/mL (0.00-0.029) 09/10/18 22:44 C-Reactive Protein 3.20 mg/dL (0.00-1.30) H 09/11/18 09:09 Total Protein 7.6 g/dL (6.3-8.2) 09/10/18 22:44 Albumin 3.9 g/dL (3.9-5) 09/10/18 22:44 Albumin/Globulin Ratio 1.1 % 09/10/18 22:44 HCG, Qual Negative (Negative) 09/11/18 00:10 Urine Color Yellow (Yellow) 09/11/18 01:30 Urine Turbidity Clear (Clear) 09/11/18 01:30 Urine pH 5.0 (5.0-7.0) 09/11/18 01:30 Ur Specific [place] 1.016 (1.003-1.030) 09/11/18 01:30 Urine Protein <15 mg/dl mg/dL (Negative) 09/11/18 01:30 Urine Glucose (UA) Negative mg/dL (Negative) 09/11/18 01:30 Urine Ketones Trace mg/dL (Negative) 09/11/18 01:30 Urine Blood Negative (Negative) 09/11/18 01:30 Urine Nitrite Negative (Negative) 09/11/18 01:30 Urine Bilirubin Negative (Negative) 09/11/18 01:30 Urine Urobilinogen < 2.0 mg/dL (<2.0) 09/11/18 01:30 Ur Leukocyte Esterase Negative (Negative) 09/11/18 01:30 Urine WBC (Auto) 1.0 /HPF (0.0-6.0) 09/11/18 01:30 Urine RBC (Auto) 1.0 /HPF (0.0-6.0) 09/11/18 01:30 U Epithel Cells (Auto) 1.0 /HPF (0-13.0) 09/11/18 01:30 Urine Bacteria (Auto) 1+ /HPF (Negative) 09/11/18 01:30 Amorphous Crystals 1+ 09/11/18 01:30 Hyaline Casts 46 /LPF 09/11/18 01:30 Urine Mucus 2+ /HPF 09/11/18 01:30 Blood Type A POSITIVE 09/10/18 22:44 Antibody Screen Negative 09/10/18 22:44 Crossmatch See Detail 09/10/18 22:44
--- NOTE | 2018-09-13 11:12 | Progress Note ---
Assessment and Plan Pt status quo. slight oozing from drain site awaiting post transfusion h/h if no plastic surgeon available at our institution, then pt needs to be transferred to other facility where plastic surg care is available. Her operating physician should be contacting whichever hospital he is affiliated with to facilitate these arrangements or please check with risk management to help with this Selected Entries 09/13/18 09:20 Temperature 98.6 F Pulse Rate 114 H Respiratory 18 Rate Blood Pressure 120/69 Objective Vital Signs - 12hr 09/12/18 09/13/18 09/13/18 23:22 00:25 00:40 Temperature 98.4 F 98.2 F 98.9 F Pulse Rate 117 H 115 H 109 H Respiratory 16 18 18 Rate Blood Pressure 105/65 123/70 110/67 O2 Sat by Pulse 100 99 99 Oximetry 09/13/18 09/13/18 09/13/18 01:10 01:40 02:10 Temperature 98.2 F 98.3 F 98.3 F Pulse Rate 115 H 109 H 112 H Respiratory 18 16 16 Rate Blood Pressure 112/61 118/57 118/60 O2 Sat by Pulse 99 99 100 Oximetry 09/13/18 09/13/18 09/13/18 02:35 05:32 07:05 Temperature 98.2 F 98.5 F 99.2 F Pulse Rate 113 H 106 H 107 H Respiratory 13 18 16 Rate Blood Pressure 119/61 108/60 133/65 O2 Sat by Pulse 100 99 100 Oximetry 09/13/18 09/13/18 09/13/18 07:20 07:50 08:20 Temperature 99.1 F 98.9 F 98.6 F Pulse Rate 109 H 103 H 106 H Respiratory 16 16 16 Rate Blood Pressure 126/63 115/62 115/58 O2 Sat by Pulse 100 97 98 Oximetry 09/13/18 09/13/18 08:50 09:20 Temperature 98.6 F 98.6 F Pulse Rate 117 H 114 H Respiratory 18 18 Rate Blood Pressure 124/69 120/69 O2 Sat by Pulse 98 98 Oximetry - Labs 09/12/18 10:44 09/13/18 05:35 Diabetes panel 09/12/18 09/13/18 Range/Units 10:44 05:35 Sodium 138 138 (137-145) mmol/L Potassium 3.8 D 3.9 (3.6-5.0) mmol/L Chloride 103.3 104.3 (98-107) mmol/L Carbon Dioxide 24 24 (22-30) mmol/L BUN 8 6 L (7-17) mg/dL Creatinine 0.7 0.5 L (0.7-1.2) mg/dL Glucose 115 H 93 (65-100) mg/dL Calcium 8.2 L 8.3 L (8.4-10.2) mg/dL Calcium panel 09/12/18 09/13/18 Range/Units 10:44 05:35 Calcium 8.2 L 8.3 L (8.4-10.2) mg/dL Pituitary panel 09/12/18 09/13/18 Range/Units 10:44 05:35 Sodium 138 138 (137-145) mmol/L Potassium 3.8 D 3.9 (3.6-5.0) mmol/L Chloride 103.3 104.3 (98-107) mmol/L Carbon Dioxide 24 24 (22-30) mmol/L BUN 8 6 L (7-17) mg/dL Creatinine 0.7 0.5 L (0.7-1.2) mg/dL Glucose 115 H 93 (65-100) mg/dL Calcium 8.2 L 8.3 L (8.4-10.2) mg/dL Adrenal panel 09/12/18 09/13/18 Range/Units 10:44 05:35 Sodium 138 138 (137-145) mmol/L Potassium 3.8 D 3.9 (3.6-5.0) mmol/L Chloride 103.3 104.3 (98-107) mmol/L Carbon Dioxide 24 24 (22-30) mmol/L BUN 8 6 L (7-17) mg/dL Creatinine 0.7 0.5 L (0.7-1.2) mg/dL Glucose 115 H 93 (65-100) mg/dL Calcium 8.2 L 8.3 L (8.4-10.2) mg/dL
[2018-09-13 11:51] LABS: Basophils # (Auto) 0.1 K/mm3 (0.0-0.1); Basophils % (Auto) 0.6 % (0.0-1.8); Eosinophils % (Auto) 0.3 % (0.0-4.3); Hematocrit 27.4 % (30.3-42.9); Hemoglobin 9.2 gm/dl (10.1-14.3); Lymphocytes # (Auto) 1.9 K/mm3 (1.2-5.4); Mean Corpuscular HGB Conc 34 % (30-34); Mean Corpuscular Volume 88 fl (79-97); Monocytes # (Auto) 0.8 K/mm3 (0.0-0.8); Monocytes % (Auto) 5.7 % (0.0-7.3); Platelet Count 301 K/mm3 (140-440); Red Blood Count 3.11 M/mm3 (3.65-5.03); Red Cell Distribution Width 14.7 % (13.2-15.2)
--- NOTE | 2018-09-13 13:09 | Progress Note ---
Assessment and Plan Cultures: 09/11/2018 Blood cultures no growth so far 09/10/2018 Urine cultures neg Assessment: 28 y/o female with Crohn's disease in remission; s/p liposuction to the abdominal area in December 2017 and liposuction and [place] But Lift (fat transfer to buttocks) by Dr Richmond Samuel on 09/10/2018; admitted on 09/11/18 due to syncope: 1) SIRS: leukocytosis improving; likely from acute blood loss +/- large fat transfer. Blood cx negative. UA negative. CXR negative. CTA negative. CT abdomen no abscess or collections or hematoma. Doubt surgical site infection as it would be too early presentation. No acute respiratory failure noted. ?fat emboli less likely. CRP=3 2) Syncope: from #1 3) Severe anemia: from recent surgical procedure, Repeat CBC showed Hg 6.3. Better after transfusion Recommendations: - follow-up blood cultures - continue unasyn D3 - certainly she should be transferred to Dr Richmond Samuel's inpatient facility to manage postsurgical complication - general surgery on board - monitor H/H and WBC Will follow up with you. Dr Calderón roundunique on Friday Dori Parish MD Infectious Diseases Attending Anesthesiologist [facility] M [phone] O [phone] Subjective Date of service: 09/13/18 Principal diagnosis: SIRS Interval history: Patient reports feeling better, alert, following all commands, c/o surg site pain, no fever Objective - Exam Narrative Exam: General appearance: Alert in NAD, conversant Eyes: anicteric sclerae, moist conjunctivae; no lid-lag; PERRLA HENT: Atraumatic; oropharynx clear Neck: Trachea midline; supple, no thyromegaly or lymphadenopathy Lungs: CTA, with normal respiratory effort and no intercostal retractions CV: tachy Abdomen: Soft, non-tender; no masses or hepatosplenomegaly Extremities: No peripheral edema or extremity lymphadenopathy Skin: +buttocks surgical site clear +induration +serosanguinous drainage Psych: Appropriate affect, alert and oriented to person, place and time. Neuro: alert and oriented x 3. Moving all extermities Lines: No CVL / PICC - Constitutional Vitals: Vital Signs Temp Pulse Resp BP Pulse Ox 98.6 F 114 H 18 120/69 98 09/13/18 09:20 09/13/18 09:20 09/13/18 09:20 09/13/18 09:20 09/13/18 09:20 Temperature -Last 24 Hours Temperature 98.6 F Temperature 98.6 F Temperature 98.6 F Temperature 98.9 F Temperature 99.1 F Temperature 99.2 F Temperature 98.5 F Temperature 98.2 F Temperature 98.2 F Temperature 98.3 F Temperature 98.3 F Temperature 98.2 F Temperature 98.9 F Temperature 98.2 F Temperature 98.4 F Temperature 98.2 F Temperature 99.7 F Temperature 99.1 F Temperature 99.1 F Temperature 99.9 F Temperature 99.6 F Temperature 99.6 F Temperature 99.1 F Temperature 99.1 F Temperature 99.7 F Temperature 98.8 F - Labs CBC & Chem 7: 09/13/18 10:55 09/13/18 05:35 Labs: Abnormal lab results 09/10/18 09/13/18 09/13/18 Range/Units 22:44 05:35 10:55 WBC 13.5 H (4.5-11.0) K/mm3 RBC 3.11 L (3.65-5.03) M/mm3 Hgb 9.2 L (10.1-14.3) gm/dl Hct 27.4 L D (30.3-42.9) % Seg Neutrophils % 79.4 H (40.0-70.0) % Seg Neutrophils # 10.7 H (1.8-7.7) K/mm3 BUN 6 L (7-17) mg/dL Creatinine 0.5 L (0.7-1.2) mg/dL Calcium 8.3 L (8.4-10.2) mg/dL Crossmatch See Detail
[2018-09-13] MEDS: SODIUM CHLORIDE FLUSH SYRINGE 10 ML IV SCH ×2 (13:58→22:25)
--- NOTE | 2018-09-13 15:35 | Progress Note ---
Assessment and Plan Patient alert, awake. No complaint of chest pain, shortness of breath and cough. Patient is on room air. O2 saturation 96%. Patient recently has liposuction. Running low grade temp at times. - Patient Problems (1) Lactic acidosis Current Visit: Yes Status: Acute Plan to address problem: Improving. Bicarb 24 Anion gap 14. (2) Rhabdomyolysis Current Visit: Yes Status: Acute Qualifiers: Rhabdomyolysis type: non-traumatic Qualified Code(s): M62.82 - Rhabdomyolysis Plan to address problem: Patient is on I/V fluids NSS at 125 ml/nr. Recommend to repeat CPK. (3) Sepsis Current Visit: Yes Status: Acute Qualifiers: Sepsis type: sepsis due to unspecified organism Qualified Code(s): A41.9 - Sepsis, unspecified organism Plan to address problem: Patient is on unasyn. (4) Syncope Current Visit: Yes Status: Acute Qualifiers: Syncope type: unspecified Qualified Code(s): R55 - Syncope and collapse Plan to address problem: Patient alert, awake at this time. Management as per primary care and neurology. Subjective Date of service: 09/13/18 Principal diagnosis: SIRS Interval history: Patient alert, awake. No complaint of chest pain, shortness of breath and cough. Patient is on room air. O2 saturation 96%. Patient recently has liposuction. Running low grade temp at times. Objective Vital Signs - 12hr 09/13/18 09/13/18 09/13/18 05:32 07:05 07:20 Temperature 98.5 F 99.2 F 99.1 F Pulse Rate 106 H 107 H 109 H Respiratory 18 16 16 Rate Blood Pressure 108/60 133/65 126/63 O2 Sat by Pulse 99 100 100 Oximetry 09/13/18 09/13/18 09/13/18 07:50 08:20 08:50 Temperature 98.9 F 98.6 F 98.6 F Pulse Rate 103 H 106 H 117 H Respiratory 16 16 18 Rate Blood Pressure 115/62 115/58 124/69 O2 Sat by Pulse 97 98 98 Oximetry 09/13/18 09:20 Temperature 98.6 F Pulse Rate 114 H Respiratory 18 Rate Blood Pressure 120/69 O2 Sat by Pulse 98 Oximetry Constitutional: no acute distress, alert Eyes: non-icteric ENT: oropharynx moist Neck: supple, no lymphadenopathy Ascultation: Bilateral: clear Cardiovascular: regular rate and rhythm Gastrointestinal: normoactive bowel sounds Integumentary: normal Extremities: no cyanosis, no edema Neurologic: normal mental status, non-focal exam, pupils equal and round, CN II- XII normal Psychiatric: mood appropriate CBC and BMP: 09/13/18 10:55 09/13/18 05:35 Abnormal lab findings: Abnormal Labs 09/10/18 09/10/18 09/10/18 22:44 22:44 22:44 WBC 30.7 H RBC 3.43 L Hgb Hct Plt Count 530 H [place] % (Auto) Seg Neutrophils % Lymphocytes % (Manual) 5.0 L Seg Neutrophils # Seg Neutrophils # Man 18.7 H Monocytes # (Manual) 1.5 H Sodium 135 L Potassium 6.2 H* BUN Creatinine Glucose 139 H Lactic Acid 4.30 H* Calcium Total Creatine Kinase C-Reactive Protein Crossmatch 09/10/18 09/10/18 09/11/18 22:44 22:44 00:08 WBC RBC Hgb Hct Plt Count [place] % (Auto) Seg Neutrophils % Lymphocytes % (Manual) Seg Neutrophils # Seg Neutrophils # Man Monocytes # (Manual) Sodium Potassium BUN Creatinine Glucose Lactic Acid 5.80 H* Calcium Total Creatine Kinase 1227 H C-Reactive Protein Crossmatch See Detail 09/11/18 09/11/18 09/11/18 01:51 02:54 03:25 WBC RBC Hgb Hct Plt Count [place] % (Auto) Seg Neutrophils % Lymphocytes % (Manual) Seg Neutrophils # Seg Neutrophils # Man Monocytes # (Manual) Sodium Potassium BUN Creatinine Glucose Lactic Acid 2.60 H* 4.00 H* Calcium Total Creatine Kinase 1367 H C-Reactive Protein Crossmatch 09/11/18 09/11/18 09/12/18 09:09 09:09 10:44 WBC 11.1 H RBC 2.08 L Hgb 6.3 L D Hct 18.9 L* D Plt Count [place] % (Auto) 7.5 H Seg Neutrophils % 75.9 H Lymphocytes % (Manual) Seg Neutrophils # 8.4 H Seg Neutrophils # Man Monocytes # (Manual) Sodium 136 L Potassium 5.5 H BUN Creatinine Glucose 106 H Lactic Acid Calcium Total Creatine Kinase C-Reactive Protein 3.20 H Crossmatch 09/12/18 09/13/18 09/13/18 10:44 05:35 10:55 WBC 13.5 H RBC 3.11 L Hgb 9.2 L Hct 27.4 L D Plt Count [place] % (Auto) Seg Neutrophils % 79.4 H Lymphocytes % (Manual) Seg Neutrophils # 10.7 H Seg Neutrophils # Man Monocytes # (Manual) Sodium Potassium BUN 6 L Creatinine 0.5 L Glucose 115 H Lactic Acid Calcium 8.2 L 8.3 L Total Creatine Kinase C-Reactive Protein Crossmatch
[2018-09-13] MEDS ORDERED: MORPHINE IV PRN (23:00)
[2018-09-14] MEDS: UNASYN/NS 3 GM/100 ML 3 GM/100 ML BAG IV SCH ×3 (01:43→12:46)
[2018-09-14 06:06] LABS: Basophils # (Auto) 0.1 K/mm3 (0.0-0.1); Basophils % (Auto) 0.6 % (0.0-1.8); Eosinophils # (Auto) 0.1 K/mm3 (0.0-0.4); Eosinophils % (Auto) 1.4 % (0.0-4.3); Hematocrit 27.8 % (30.3-42.9); Hemoglobin 9.4 gm/dl (10.1-14.3); Lymphocytes # (Auto) 2.3 K/mm3 (1.2-5.4); Lymphocytes % (Auto) 22.1 % (13.4-35.0); Mean Corpuscular HGB Conc 34 % (30-34); Mean Corpuscular Volume 90 fl (79-97); Monocytes # (Auto) 0.9 K/mm3 (0.0-0.8); Monocytes % (Auto) 8.6 % (0.0-7.3); Platelet Count 359 K/mm3 (140-440); Red Blood Count 3.08 M/mm3 (3.65-5.03); Red Cell Distribution Width 14.7 % (13.2-15.2)
[2018-09-14 06:26] LABS: BUN/Creatinine Ratio 8; Blood Urea Nitrogen 4 mg/dL (7-17); Calcium 8.2 mg/dL (8.4-10.2); Hemolysis Index 3
--- NOTE | 2018-09-14 08:27 | Progress Note ---
Assessment and Plan Pt status quo from gen surg perspective dressings dry h/h's stable post transfusion will sign off pt needs to be followed by her surgeon that performed the procedure or needs to be transferred to facility that has plastic surgery services if needed Selected Entries 09/14/18 06:34 Temperature 97.9 F Pulse Rate 100 H Respiratory 16 Rate Blood Pressure 107/68 Laboratory Tests 09/13/18 09/14/18 10:55 05:23 Hgb 9.2 L 9.4 L Hct 27.4 L D 27.8 L Objective Vital Signs - 12hr 09/13/18 09/14/18 09/14/18 22:00 00:21 06:34 Temperature 99.3 F 97.9 F Pulse Rate 111 H 100 H Respiratory 16 18 16 Rate Blood Pressure 109/63 107/68 O2 Sat by Pulse 98 96 Oximetry - Labs 09/14/18 05:23 09/14/18 05:23 Diabetes panel 09/14/18 Range/Units 05:23 Sodium 139 (137-145) mmol/L Potassium 3.8 (3.6-5.0) mmol/L Chloride 105.2 (98-107) mmol/L Carbon Dioxide 23 (22-30) mmol/L BUN 4 L (7-17) mg/dL Creatinine 0.5 L (0.7-1.2) mg/dL Glucose 93 (65-100) mg/dL Calcium 8.2 L (8.4-10.2) mg/dL Calcium panel 09/14/18 Range/Units 05:23 Calcium 8.2 L (8.4-10.2) mg/dL Pituitary panel 09/14/18 Range/Units 05:23 Sodium 139 (137-145) mmol/L Potassium 3.8 (3.6-5.0) mmol/L Chloride 105.2 (98-107) mmol/L Carbon Dioxide 23 (22-30) mmol/L BUN 4 L (7-17) mg/dL Creatinine 0.5 L (0.7-1.2) mg/dL Glucose 93 (65-100) mg/dL Calcium 8.2 L (8.4-10.2) mg/dL Adrenal panel 09/14/18 Range/Units 05:23 Sodium 139 (137-145) mmol/L Potassium 3.8 (3.6-5.0) mmol/L Chloride 105.2 (98-107) mmol/L Carbon Dioxide 23 (22-30) mmol/L BUN 4 L (7-17) mg/dL Creatinine 0.5 L (0.7-1.2) mg/dL Glucose 93 (65-100) mg/dL Calcium 8.2 L (8.4-10.2) mg/dL
--- NOTE | 2018-09-14 09:19 | Progress Note ---
Assessment and Plan Cultures: 09/11/2018 Blood cultures no growth so far 09/10/2018 Urine cultures neg Assessment: 28 y/o female with Crohn's disease in remission; s/p liposuction to the abdominal area in December 2017 and liposuction and [place] But Lift (fat transfer to buttocks) by Dr Richmond Samuel on 09/10/2018; admitted on 09/11/18 due to syncope: 1) SIRS: leukocytosis improving; likely from acute blood loss +/- large fat transfer. Blood cx negative. UA negative. CXR negative. CTA negative. CT abdomen no abscess or collections or hematoma. Doubt surgical site infection as it would be too early presentation. No acute respiratory failure noted. ?fat emboli less likely. CRP=3 2) Syncope: from #1 3) Severe anemia: from recent surgical procedure, Repeat CBC showed Hg 6.3. Better after transfusion Recommendations: - patient to continue her home PO abx as prescribed by her surgeon post operatively - Will f/u with Dr Richmond Samuel tomorrow - ID clinic follow up PRN, contact info provided [facility] M: [phone] O:[phone] Subjective Date of service: 09/14/18 Principal diagnosis: SIRS Interval history: Patient seen and examined, Denied pain, sob or Fevers, Stated that she was feeling much better today and was ready to go home. Communicated that she should follow up with her surgeon regarding suspected post-op complications. Objective - Exam Narrative Exam: General appearance: Alert in NAD, conversant Eyes: anicteric sclerae, moist conjunctivae; no lid-lag; PERRLA HENT: Atraumatic; oropharynx clear Neck: Trachea midline; supple, no thyromegaly or lymphadenopathy Lungs: CTA, with normal respiratory effort and no intercostal retractions CV: tachy Abdomen: Soft, non-tender; no masses or hepatosplenomegaly Extremities: No peripheral edema or extremity lymphadenopathy Skin: +buttocks surgical site clear +induration, no serosanguinous drainage observed Psych: Appropriate affect, alert and oriented to person, place and time. Neuro: alert and oriented x 3. Moving all extermities Lines: No CVL / PICC - Constitutional Vitals: Vital Signs Temp Pulse Resp BP Pulse Ox 97.9 F 100 H 16 107/68 96 01/14/19 06:34 09/14/18 06:34 09/14/18 06:34 09/14/18 06:34 09/14/18 06:34 Temperature -Last 24 Hours Temperature 97.9 F Temperature 99.3 F Temperature 99.7 F Temperature 99.0 F Temperature 98.6 F - Labs CBC & Chem 7: 09/14/18 05:23 09/14/18 05:23 Labs: Abnormal lab results 09/10/18 09/13/18 09/14/18 Range/Units 22:44 10:55 05:23 WBC 13.5 H (4.5-11.0) K/mm3 RBC 3.11 L (3.65-5.03) M/mm3 Hgb 9.2 L (10.1-14.3) gm/dl Hct 27.4 L D (30.3-42.9) % [place] % (Auto) (0.0-7.3) % [place] # (0.0-0.8) K/mm3 Seg Neutrophils % 79.4 H (40.0-70.0) % Seg Neutrophils # 10.7 H (1.8-7.7) K/mm3 BUN 4 L (7-17) mg/dL Creatinine 0.5 L (0.7-1.2) mg/dL Calcium 8.2 L (8.4-10.2) mg/dL Crossmatch See Detail 09/14/18 Range/Units 05:23 WBC (4.5-11.0) K/mm3 RBC 3.08 L (3.65-5.03) M/mm3 Hgb 9.4 L (10.1-14.3) gm/dl Hct 27.8 L (30.3-42.9) % [place] % (Auto) 8.6 H (0.0-7.3) % [place] # 0.9 H (0.0-0.8) K/mm3 Seg Neutrophils % (40.0-70.0) % Seg Neutrophils # (1.8-7.7) K/mm3 BUN (7-17) mg/dL Creatinine (0.7-1.2) mg/dL Calcium (8.4-10.2) mg/dL Crossmatch
[2018-09-14] MEDS: SODIUM CHLORIDE FLUSH SYRINGE 10 ML IV SCH (10:22)
--- NOTE | 2018-09-14 13:34 | Discharge Summary ---
Providers - Providers Date of Admission: 09/11/18 06:39 Attending physician: LOLA MARY MD 09/11/18 00:51 Consult to Physician [CONS] Routine Comment: Dr. Becker spoke with Dr. Santo @ 0025 Consulting Provider: MARIXA SANTO Physician Instructions: Reason For Exam: post op 09/11/18 06:46 Consult to Physician [CONS] Routine Comment: Consulting Provider: SUDEEP [facility] Physician Instructions: Reason For Exam: icu 09/12/18 11:21 Consult to Physician [CONS] Routine Comment: Consulting Provider: LISS VEGA Physician Instructions: Reason For Exam: elevated wbc Primary care physician: DOG POUND ATTENDANT Hospitalization Condition: Critical Hospital course: 28-year-old woman who presents after a light suction and fat transfer to the buttocks with weakness, bleeding from surgical sites and malaise. Ispoke to her surgeon Dr Richmond Samuel, . [phone], he agreed with her care, he suggested that she wear compression garments which he had provided for her, He did not have an inpatient facility to transfer her to at this time * She received IV antibiotics, IV fluids. And blood transfusion. Repeat angiographic chest was negative for pulmonary embolism. * The patient has an appointment to follow up with her surgeon the day after discharge, she was advised to keep this appointment. * She is being discharged on oral antibiotics, iron supplements, and is advised to wear compression garments Problems sepsis cellulitis Rhabdomyolysis Hyperkalemia Dehydration Acute blood loss anemia, expected outcome after surgery Disposition: TO HOME OR SELFCARE Time spent for discharge: 33 minutes Core Measure Documentation - Palliative Care Palliative Care/ Comfort Measures: Not Applicable - Core Measures Any of the following diagnoses?: none Exam - Physical Exam Narrative exam: General appearance: Present: no acute distress, well-nourished - EENT Eyes: Present: PERRL ENT: hearing intact, clear oral mucosa - Neck Neck: Present: supple, normal ROM - Respiratory Respiratory effort: normal Respiratory: bilateral: CTA - Cardiovascular Heart Sounds: Present: S1 & S2. Absent: rub, click - Extremities Extremities: pulses symmetrical, No edema Peripheral Pulses: within normal limits - Abdominal General gastrointestinal: Present: soft, non-tender, non-distended, normal bowel sounds Female genitourinary: Present: normal - Integumentary Integumentary: Present: clear, warm (the patient has induration around her buttocks, erythema, tenderness, . There is bruising which is consistent with liposuction of fat transfer), dry - Musculoskeletal Musculoskeletal: gait normal, strength equal bilaterally - Psychiatric Psychiatric: appropriate mood/affect, intact judgment & insight - Neurologic Neurologic: CNII-XII intact, moves all extremities - Constitutional Vitals: Temp Pulse Resp BP Pulse Ox 97.9 F 100 H 16 107/68 96 09/14/18 06:34 09/14/18 06:34 09/14/18 06:34 09/14/18 06:34 09/14/18 06:34 Plan Follow up with: PRIMARY CARE,MD [Primary Care Provider] - 3-5 Days Prescriptions: Amoxicillin/Potassium Clav [Augmentin 875-125 Tablet] 1 each PO BID #10 tablet Ferrous Gluconate 324 mg PO DAILY #30 tablet oxyCODONE /ACETAMINOPHEN [Percocet 5/325 mg] 1 tab PO Q6H PRN #14 tablet PRN Reason: Pain, Moderate (4-6)
[2018-09-14 14:14] VITALS: BP 114/72
== END 2018-09-14 17:39 | disposition home or self-care (01) | DRG 862 ==
LOC: ED 19:57 → CC1 09-11 06:39 → 3A 09-11 17:16
PROVIDERS: ADMIT Internal Medicine; ATTEND Internal Medicine
PROC: 30233N1 Transfusion of Nonautologous Red Blood Cells into Peripheral Vein, Percutaneous Approach (ICD-10-PCS; principal; 2018-09-12)
DX: T81.40XA Infection following a procedure, unspecified, initial encounter (principal); A41.9 Sepsis, unspecified organism; T81.12XA Postprocedural septic shock, initial encounter; D62 Acute posthemorrhagic anemia; M62.82 Rhabdomyolysis; L76.22 Postprocedural hemorrhage of skin and subcutaneous tissue following other procedure; K50.90 Crohn's disease, unspecified, without complications; L03.317 Cellulitis of buttock; N17.9 Acute kidney failure, unspecified; T81.44XA Sepsis following a procedure, initial encounter; E87.5 Hyperkalemia; E86.0 Dehydration; E66.9 Obesity, unspecified; Y83.8 Other surgical procedures as the cause of abnormal reaction of the patient, or of later complication, without mention of misadventure at the time of the procedure; Y92.89 Other specified places as the place of occurrence of the external cause; Z68.27 Body mass index [BMI] 27.0-27.9, adult
CPT/HCPCS: 36415; 70450; 71045; 71275; 74176; 80048; 80053; 81001; 82140; 82550; 82553; 84484; 84703; 85007; 85025; 86140; 86850; 86900; 86901; 86920; 87040; 87086; 93005; 93010; 96361; 96365; 96366; 96372; 96375; 99292; G0378; J0295; J1170; J1650; J1815; J2270; J2405; J2543; J3370; J7030; J7040; P9016; Q9967